=== PATIENT | male | born 1965 | race Caucasian/White ===

== ENCOUNTER 2022-01-11 10:49 | Emergency (ER) | payer OTHER, SELFPAY | END 2022-01-11 12:00 | disposition home or self-care (01) | LOC: CSHERS 10:49 | DX: J01.90 Acute sinusitis, unspecified (principal); Z87.891 Personal history of nicotine dependence | CPT/HCPCS: 99283 ==

== ENCOUNTER 2022-01-14 15:05 | Emergency (ER) | payer OTHER, SELFPAY ==
[2022-01-14] MEDS ORDERED: Metoclopramide HCl 10 MG/2 ML VIAL ONE (17:43)
[2022-01-14] MEDS ORDERED: Dexamethasone 10 MG/ML VIAL ONE (17:43)
[2022-01-14] MEDS ORDERED: diphenhydrAMINE 50 MG/ML VIAL ONE (17:44)
[2022-01-14] MEDS ORDERED: Ketorolac Tromethamine 30 MG/ML VIAL ONE (17:44)
== END 2022-01-14 19:36 | disposition home or self-care (01) ==
LOC: CSHERS 15:05
DX: J01.90 Acute sinusitis, unspecified (principal); I10 Essential (primary) hypertension; F17.210 Nicotine dependence, cigarettes, uncomplicated
CPT/HCPCS: 96361; 96374; 96375; J1100; J1200; J1885; J2765

== ENCOUNTER 2022-01-20 06:31 | Emergency (ER) | payer OTHER ==
[2022-01-20 07:31] LABS: #Basophils 0.1 10x3/uL (0.0-0.2); #Eosinphils 0.7 10x3/uL (0.0-0.5); #Monocytes 0.8 10x3/uL (0.0-1.1); #Neutrophils 9.2 10x3/uL (1.5-8.4); %Basophils 0.6 % (0.0-2.0); %Lymphocytes 9.4 % (18.0-47.0); %Monocytes 6.3 % (0.0-10.0); %Neutrophils 75.6 % (40.0-75.0); Hemoglobin 9.7 g/dL (13.5-17.5); Mean Corpuscular HGB CONC 32.4 g/dL (32.0-36.0); Mean Corpuscular Hemoglobin 25.3 pg (27.0-33.0); Mean Corpuscular Volume 77.9 fl (81.2-95.1); Mean Platelet Volume 9.1 fl (7.4-10.4); Platelet Count 534 10x3/uL (150-450); RBC Distribution Width 13.5 % (11.5-14.5); Red Blood Cell (RBC) Count 3.84 10x6/uL (4.32-5.72); White Blood Cell (WBC) Count 12.1 10x3/uL (3.5-10.5)
[2022-01-20] MEDS ORDERED: Albuterol Sulfate 2.5 mg/3 ml Neb ONE (07:35)
[2022-01-20 07:42] LABS: SARS-CoV-2 NAA Rapid Test Not Detected (NotDetected)
[2022-01-20 07:47] LABS: ALT (SGPT) 70 U/L (8-55); AST (SGOT) 27 U/L (5-34); Albumin 3.1 g/dL (3.5-5.0); Alkaline Phosphatase 126 U/L (40-110); Anion Gap 15 mmol/L (10-20); BUN (Urea Nitrogen) 13 mg/dL (8.4-25.7); Bilirubin, Total 0.4 mg/dL (0.2-1.2); Calc. Creatinine Clearance 0 mL/min (70-130); Carbon Dioxide 22 mmol/L (22-29); Chloride 103 mmol/L (98-107); Estimated GFR 77; Globulin 3.8 g/dL (2.4-3.5); Glucose 153 mg/dL (70-105); Lipase 15 U/L (8-78); Potassium 3.4 mmol/L (3.5-5.1); Protein, Total 6.9 g/dL (6.0-8.3); Sodium 137 mmol/L (136-145)
[2022-01-20] MEDS ORDERED: Azithromycin 500 MG VIAL ONE (10:11)
[2022-01-20] MEDS ORDERED: cefTRIAXone\\ROCEPHIN 2 GM VIAL ONE (10:11)
[2022-01-20] MEDS ORDERED: Hydrocortisone Sod Succ/PF 100 mg/2 ml Vial ONE (10:28)
[2022-01-20] MEDS ORDERED: Iopamidol 370 76% 100 ML VIAL ONE (16:15)
== END 2022-01-20 11:49 | disposition short-term general hospital (02) ==
LOC: CSHERS 06:31
DX: J18.9 Pneumonia, unspecified organism (principal); M31.30 Wegener's granulomatosis without renal involvement; Z20.822 Contact with and (suspected) exposure to COVID-19; Z87.891 Personal history of nicotine dependence
CPT/HCPCS: 71045; 71275; 80053; 83690; 83880; 84484; 85025; 85379; 94640; 94760; 96365; 96375; J0456; J0696; J1720; J7611; J7620; Q9967

== ENCOUNTER 2022-03-09 10:52 | Emergency (ER) | payer OTHER ==
[~2022-03-09 10:52] MED LIST: Iopamidol 300 61% 100 ML VIAL FS ONE
[2022-03-09 12:26] LABS: #Eosinphils 0.3 10x3/uL (0.0-0.5); #Monocytes 0.7 10x3/uL (0.0-1.1); #Neutrophils 14.4 10x3/uL (1.5-8.4); %Basophils 0.2 % (0.0-2.0); %Eosinophils 1.6 % (0.0-6.0); %Monocytes 4.3 % (0.0-10.0); %Neutrophils 85.9 % (40.0-75.0); Hemoglobin 8.8 g/dL (13.5-17.5); Mean Corpuscular HGB CONC 31.7 g/dL (32.0-36.0); Mean Corpuscular Hemoglobin 24.4 pg (27.0-33.0); Mean Platelet Volume 9.6 fl (7.4-10.4); Platelet Count 384 10x3/uL (150-450); RBC Distribution Width 16.7 % (11.5-14.5); Red Blood Cell (RBC) Count 3.61 10x6/uL (4.32-5.72); White Blood Cell (WBC) Count 16.8 10x3/uL (3.5-10.5)
[2022-03-09] MEDS ORDERED: Morphine 4 MG/ML VIAL ONE (12:32)
[2022-03-09] MEDS ORDERED: Ondansetron PF 4 MG/2 ML Vial ONE (12:32)
[2022-03-09 12:41] LABS: Bilirubin Neg (Negative); Blood, Urine 250 (Negative); Clarity Clear (Clear); Glucose, Urine (Dipstick) 50 mg/dL (Negative); Ketone, Urine Negative (Negative); Leukocyte 25 (Negative); Nitrite Negative (Negative); Protein, Urine (Dipstick) 500 mg/dl (Neg-Trace); Urobilinogen Normal mg/dL (Less than 2)
[2022-03-09 12:41] LABS: ALT (SGPT) 50 U/L (8-55); AST (SGOT) 27 U/L (5-34); Albumin 3.1 g/dL (3.5-5.0); Alkaline Phosphatase 72 U/L (40-110); Anion Gap 15 mmol/L (10-20); BUN (Urea Nitrogen) 22 mg/dL (8.4-25.7); Bilirubin, Total 0.2 mg/dL (0.2-1.2); Calc. Creatinine Clearance 0 mL/min (70-130); Calcium 8.7 mg/dL (7.8-10.44); Carbon Dioxide 26 mmol/L (22-29); Chloride 101 mmol/L (98-107); Estimated GFR 65; Globulin 2.9 g/dL (2.4-3.5); Glucose 186 mg/dL (70-105); Lipase 55 U/L (8-78); Sodium 139 mmol/L (136-145)
[2022-03-09 12:46] LABS: Bacteria/HPF None Seen HPF (None Seen); RBC/HPF 21-50 HPF (0-3); Squamous Epithelial 0-3 HPF (0-3); WBC/HPF 0-3 HPF (0-3)
[2022-03-09] MEDS ORDERED: Ketorolac Tromethamine 30 MG/ML VIAL ONE (13:33)
[2022-03-09] MEDS ORDERED: cefTRIAXone\\ROCEPHIN 2 GM VIAL ONE (14:18)
== END 2022-03-09 15:04 | disposition home or self-care (01) ==
LOC: CSHERS 10:52
DX: N30.01 Acute cystitis with hematuria (principal); Z87.891 Personal history of nicotine dependence; Z86.73 Personal history of transient ischemic attack (TIA), and cerebral infarction without residual deficits
CPT/HCPCS: 74177; 80053; 81003; 81015; 83690; 85025; 96374; 96375; J0696; J1885; J2270; J2405; Q9967

== ENCOUNTER 2022-03-16 21:41 | Inpatient (IN) | payer OTHER ==
[2022-03-16] MEDS ORDERED: Ondansetron PF 4 MG/2 ML Vial ONE (22:09)
[2022-03-16] MEDS ORDERED: Morphine 4 MG/ML VIAL ONE ×2 (22:09→23:19)
[2022-03-16 22:21] LABS: #Basophils 0.1 10x3/uL (0.0-0.2); #Eosinphils 0.4 10x3/uL (0.0-0.5); #Monocytes 0.8 10x3/uL (0.0-1.1); #Neutrophils 13.7 10x3/uL (1.5-8.4); %Basophils 0.5 % (0.0-2.0); %Eosinophils 2.1 % (0.0-6.0); %Lymphocytes 10.2 % (18.0-47.0); %Monocytes 4.8 % (0.0-10.0); %Neutrophils 77.8 % (40.0-75.0); Hemoglobin 10.1 g/dL (13.5-17.5); Mean Corpuscular HGB CONC 31.7 g/dL (32.0-36.0); Mean Corpuscular Hemoglobin 24.1 pg (27.0-33.0); Mean Corpuscular Volume 76.1 fl (81.2-95.1); Mean Platelet Volume 9.4 fl (7.4-10.4); Platelet Count 439 10x3/uL (150-450); RBC Distribution Width 17.2 % (11.5-14.5); Red Blood Cell (RBC) Count 4.19 10x6/uL (4.32-5.72); White Blood Cell (WBC) Count 17.5 10x3/uL (3.5-10.5)
[2022-03-16 22:30] LABS: ALT (SGPT) 71 U/L (8-55); AST (SGOT) 19 U/L (5-34); Albumin 3.5 g/dL (3.5-5.0); Alkaline Phosphatase 75 U/L (40-110); Anion Gap 19 mmol/L (10-20); BUN (Urea Nitrogen) 21 mg/dL (8.4-25.7); Bilirubin, Total 0.2 mg/dL (0.2-1.2); Calc. Creatinine Clearance 0 mL/min (70-130); Calcium 10.6 mg/dL (7.8-10.44); Carbon Dioxide 21 mmol/L (22-29); Chloride 100 mmol/L (98-107); Estimated GFR 51; Globulin 3.2 g/dL (2.4-3.5); Glucose 161 mg/dL (70-105); Potassium 3.8 mmol/L (3.5-5.1); Protein, Total 6.7 g/dL (6.0-8.3); Sodium 136 mmol/L (136-145)
[2022-03-16 23:33] LABS: Bilirubin Neg (Negative); Blood, Urine 250 (Negative); Clarity Clear (Clear); Glucose, Urine (Dipstick) 50 mg/dL (Negative); Ketone, Urine Negative (Negative); Leukocyte 25 (Negative); Nitrite Negative (Negative); Protein, Urine (Dipstick) 100 mg/dl (Neg-Trace); Specific Gravity, Urine 1.015 (1.005-1.030); Urobilinogen Normal mg/dL (Less than 2); pH, Urine 6.5 (5.0-9.0)
[2022-03-16 23:39] LABS: RBC/HPF 21-50 HPF (0-3)
[2022-03-16 23:40] LABS: Bacteria/HPF Rare-Few HPF (None Seen); Squamous Epithelial 0-3 HPF (0-3)
[2022-03-17] MEDS ORDERED: Piperacillin/Tazobactam 3.375 GM VIAL ONE ×3 (00:22→20:44)
[2022-03-17] MEDS ORDERED: HYDROmorphone 0.5 MG/0.5 ML SYRINGE ONE ×2 (00:38→00:39)
[2022-03-17] MEDS ORDERED: Ondansetron PF 4 MG/2 ML Vial IVP PRN (00:42)
[2022-03-17] MEDS ORDERED: Ondansetron ODT 4 MG TAB PO PRN (00:42)
[2022-03-17] MEDS ORDERED: Benzonatate 100 MG CAP PO PRN (00:44)
[2022-03-17] MEDS: Sodium Chloride 0.9% 1,000 ML IV SCH ×3 (01:45→23:38)
[2022-03-17] MEDS ORDERED: HYDROcodone/Acetaminophen 5/325 mg Tablet ONE ×3 (01:48→21:06)
[2022-03-17] MEDS: HYDROcodone/Acetaminophen 5/325 mg Tablet PO PRN ×3 (01:50→21:10)
[2022-03-17 01:57] LABS: SARS-CoV-2 NAA Rapid Test Not Detected (NotDetected)
[2022-03-17 02:34] VITALS: BMI 19.8
[2022-03-17] MEDS: Piperacillin/Tazobactam 3.375 GM in Sodium Chloride 0.9% 100 ML IVPB SCH ×3 (02:40→21:11)
[2022-03-17 03:10] LABS: #Basophils 0.1 10x3/uL (0.0-0.2); #Eosinphils 0.1 10x3/uL (0.0-0.5); #Monocytes 0.3 10x3/uL (0.0-1.1); #Neutrophils 9.2 10x3/uL (1.5-8.4); %Basophils 0.5 % (0.0-2.0); %Eosinophils 0.6 % (0.0-6.0); %Lymphocytes 8.8 % (18.0-47.0); %Monocytes 2.5 % (0.0-10.0); %Neutrophils 83.3 % (40.0-75.0); Hemoglobin 8.5 g/dL (13.5-17.5); Mean Corpuscular HGB CONC 32.1 g/dL (32.0-36.0); Mean Corpuscular Hemoglobin 24.2 pg (27.0-33.0); Mean Corpuscular Volume 75.5 fl (81.2-95.1); Mean Platelet Volume 9.1 fl (7.4-10.4); Platelet Count 352 10x3/uL (150-450); Red Blood Cell (RBC) Count 3.51 10x6/uL (4.32-5.72)
[2022-03-17 03:17] LABS: Lactic Acid 2.2 mmol/L (0.5-2.2)
[2022-03-17 04:08] LABS: ALT (SGPT) 56 U/L (8-55); AST (SGOT) 14 U/L (5-34); Alkaline Phosphatase 63 U/L (40-110); Anion Gap 17 mmol/L (10-20); BUN (Urea Nitrogen) 20 mg/dL (8.4-25.7); Bilirubin, Total 0.2 mg/dL (0.2-1.2); Calc. Creatinine Clearance 62 mL/min (70-130); Carbon Dioxide 22 mmol/L (22-29); Chloride 102 mmol/L (98-107); Estimated GFR 53; Globulin 2.6 g/dL (2.4-3.5); Glucose 161 mg/dL (70-105); Potassium 4.7 mmol/L (3.5-5.1); Protein, Total 5.6 g/dL (6.0-8.3); Sodium 136 mmol/L (136-145)
[2022-03-17] MEDS: Morphine 4 MG/ML VIAL SLOW IVP PRN ×2 (07:59→14:31)
[2022-03-17] MEDS ORDERED: Pregabalin 50 MG CAP ONE ×3 (08:11→22:27)
[2022-03-17] MEDS ORDERED: predniSONE 20 MG TAB ONE (08:12)
[2022-03-17] MEDS ORDERED: Morphine 4 MG/ML VIAL ONE ×3 (08:12→20:43)
[2022-03-17] MEDS ORDERED: Folic Acid 1 MG TAB ONE (08:13)
[2022-03-17] MEDS ORDERED: Apixaban 2.5 MG TAB ONE (08:16)
[2022-03-17] MEDS: DULoxetine 30 MG CAP PO SCH (08:22)
[2022-03-17] MEDS: Folic Acid 1 MG TAB PO SCH (08:22)
[2022-03-17] MEDS: Apixaban 2.5 MG TAB PO SCH ×2 (08:22→21:14)
[2022-03-17] MEDS: predniSONE 20 MG TAB PO SCH (08:22)
[2022-03-17] MEDS: Pregabalin 50 MG CAP PO SCH ×3 (08:22→22:29)
[2022-03-17] MEDS ORDERED: Iopamidol 370 76% 100 ML VIAL ONE (09:34)
[2022-03-17] MEDS ORDERED: Apixaban 5 MG TAB ONE ×2 (21:13→21:14)
[2022-03-18] MEDS ORDERED: Morphine 4 MG/ML VIAL ONE ×2 (01:18→09:16)
[2022-03-18] MEDS: Morphine 4 MG/ML VIAL SLOW IVP PRN ×4 (01:23→21:02)
[2022-03-18] MEDS ORDERED: HYDROcodone/Acetaminophen 5/325 mg Tablet ONE ×2 (02:12→10:43)
[2022-03-18] MEDS ORDERED: Piperacillin/Tazobactam 3.375 GM VIAL ONE (04:28)
[2022-03-18] MEDS: Piperacillin/Tazobactam 3.375 GM in Sodium Chloride 0.9% 100 ML IVPB SCH ×3 (04:32→21:02)
[2022-03-18] MEDS: HYDROcodone/Acetaminophen 5/325 mg Tablet PO PRN ×4 (04:47→22:34)
[2022-03-18] MEDS: Sodium Chloride 0.9% 1,000 ML IV SCH ×4 (05:51→18:41)
[2022-03-18] MEDS ORDERED: predniSONE 20 MG TAB ONE (08:10)
[2022-03-18] MEDS ORDERED: Apixaban 5 MG TAB ONE (08:10)
[2022-03-18] MEDS ORDERED: Folic Acid 1 MG TAB ONE (08:11)
[2022-03-18] MEDS ORDERED: Pregabalin 50 MG CAP ONE (08:35)
[2022-03-18] MEDS: Pregabalin 50 MG CAP PO SCH ×3 (08:52→21:00)
[2022-03-18] MEDS: Folic Acid 1 MG TAB PO SCH (08:53)
[2022-03-18] MEDS: Apixaban 2.5 MG TAB PO SCH ×2 (08:53→21:00)
[2022-03-18] MEDS: DULoxetine 30 MG CAP PO SCH (08:53)
[2022-03-18] MEDS: predniSONE 20 MG TAB PO SCH (08:53)
[2022-03-19] MEDS: Sodium Chloride 0.9% 1,000 ML IV SCH ×3 (00:18→11:39)
[2022-03-19] MEDS ORDERED: Sodium Chloride 0.9% 100 ML ONE (04:30)
[2022-03-19] MEDS: Piperacillin/Tazobactam 3.375 GM in Sodium Chloride 0.9% 100 ML IVPB SCH ×3 (04:36→21:37)
[2022-03-19] MEDS: HYDROcodone/Acetaminophen 5/325 mg Tablet PO PRN (04:39)
[2022-03-19 05:09] LABS: Anion Gap 11 mmol/L (10-20); BUN (Urea Nitrogen) 22 mg/dL (8.4-25.7); Calc. Creatinine Clearance 73 mL/min (70-130); Calcium 8.2 mg/dL (7.8-10.44); Carbon Dioxide 25 mmol/L (22-29); Chloride 109 mmol/L (98-107); Estimated GFR 65; Glucose 78 mg/dL (70-105); Potassium 3.9 mmol/L (3.5-5.1); Sodium 141 mmol/L (136-145)
[2022-03-19] MEDS: Pregabalin 50 MG CAP PO SCH ×3 (08:18→19:51)
[2022-03-19] MEDS: Apixaban 2.5 MG TAB PO SCH ×2 (08:18→19:52)
[2022-03-19] MEDS: DULoxetine 30 MG CAP PO SCH (08:18)
[2022-03-19] MEDS: predniSONE 20 MG TAB PO SCH (08:18)
[2022-03-19] MEDS: Folic Acid 1 MG TAB PO SCH (08:18)
[2022-03-19] MEDS: Morphine 4 MG/ML VIAL SLOW IVP PRN ×3 (08:34→19:49)
[2022-03-19] MEDS ORDERED: tiZANidine HCl 4 MG TAB PO SCH (10:00)
[2022-03-19] MEDS: HYDROcodone/Acetaminophen 10/325 mg Tablet PO PRN (17:54)
[2022-03-19] MEDS: tiZANidine HCl 4 MG TAB PO SCH (19:52)
[2022-03-20] MEDS: HYDROcodone/Acetaminophen 10/325 mg Tablet PO PRN ×4 (00:45→19:18)
[2022-03-20] MEDS: Piperacillin/Tazobactam 3.375 GM in Sodium Chloride 0.9% 100 ML IVPB SCH ×3 (05:55→20:42)
[2022-03-20] MEDS: Morphine 4 MG/ML VIAL SLOW IVP PRN ×4 (05:56→20:52)
[2022-03-20] MEDS: Sodium Chloride 0.9% 1,000 ML IV SCH (05:56)
[2022-03-20] MEDS: Pregabalin 50 MG CAP PO SCH ×3 (08:53→20:42)
[2022-03-20] MEDS: tiZANidine HCl 4 MG TAB PO SCH ×2 (08:53→20:43)
[2022-03-20] MEDS: Apixaban 2.5 MG TAB PO SCH ×2 (08:55→20:42)
[2022-03-20] MEDS: predniSONE 20 MG TAB PO SCH (08:56)
[2022-03-20] MEDS: Folic Acid 1 MG TAB PO SCH (08:56)
[2022-03-20] MEDS: DULoxetine 30 MG CAP PO SCH (08:56)
[2022-03-20 12:00] LABS: #Basophils 0.1 10x3/uL (0.0-0.2); #Eosinphils 0.4 10x3/uL (0.0-0.5); #Monocytes 0.9 10x3/uL (0.0-1.1); #Neutrophils 10.2 10x3/uL (1.5-8.4); %Basophils 0.4 % (0.0-2.0); %Eosinophils 3.1 % (0.0-6.0); %Lymphocytes 13.3 % (18.0-47.0); %Monocytes 6.1 % (0.0-10.0); %Neutrophils 72.8 % (40.0-75.0); Hemoglobin 8.2 g/dL (13.5-17.5); Mean Corpuscular HGB CONC 30.4 g/dL (32.0-36.0); Mean Corpuscular Volume 79.2 fl (81.2-95.1); Mean Platelet Volume 9.8 fl (7.4-10.4); Platelet Count 357 10x3/uL (150-450); RBC Distribution Width 17.2 % (11.5-14.5); Red Blood Cell (RBC) Count 3.41 10x6/uL (4.32-5.72)
[2022-03-20 12:13] LABS: ALT (SGPT) 29 U/L (8-55); AST (SGOT) 15 U/L (5-34); Albumin 2.9 g/dL (3.5-5.0); Alkaline Phosphatase 60 U/L (40-110); Anion Gap 12 mmol/L (10-20); BUN (Urea Nitrogen) 18 mg/dL (8.4-25.7); Bilirubin, Total 0.1 mg/dL (0.2-1.2); CRP (Inflammatory) 4.07 mg/dL (= or < 0.5); Calc. Creatinine Clearance 77 mL/min (70-130); Carbon Dioxide 25 mmol/L (22-29); Chloride 107 mmol/L (98-107); Estimated GFR 69; Globulin 2.1 g/dL (2.4-3.5); Glucose 112 mg/dL (70-105); Potassium 3.5 mmol/L (3.5-5.1); Sodium 140 mmol/L (136-145)
[2022-03-20] MEDS ORDERED: Amlodipine 5 MG TAB PO SCH ×2 (13:00→21:30)
[2022-03-20] MEDS ORDERED: methylPREDNISolone Sod Succ/PF 125 MG/2 ML VIAL IVP SCH (13:00)
[2022-03-20] MEDS: methylPREDNISolone Sod Succ 40 MG VIAL IVP SCH (17:18)
[2022-03-20 19:12] LABS: Bilirubin Neg (Negative); Blood, Urine 150 (Negative); Clarity Clear (Clear); Glucose, Urine (Dipstick) 250 mg/dL (Negative); Ketone, Urine Negative (Negative); Leukocyte Negative (Negative); Nitrite Negative (Negative); Protein, Urine (Dipstick) 100 mg/dl (Neg-Trace); Urobilinogen Normal mg/dL (Less than 2)
[2022-03-20 19:22] LABS: Squamous Epithelial 0-3 HPF (0-3); WBC/HPF 0-3 HPF (0-3)
[2022-03-20 19:23] LABS: Bacteria/HPF 1+ HPF (None Seen); Mucous/LPF 1+ LPF (<2+)
[2022-03-20] MEDS: Tamsulosin HCl 0.4 MG CAP PO SCH (20:43)
[2022-03-20] MEDS ORDERED: methylPREDNISolone Sod Succ 40 MG VIAL IVP SCH (21:00)
[2022-03-20] MEDS ORDERED: Nitroglycerin 2% Ointment 1 INCH/1 GM Packet TOP SCH (21:30)
[2022-03-21] MEDS: methylPREDNISolone Sod Succ 40 MG VIAL IVP SCH ×4 (00:48→21:26)
[2022-03-21] MEDS: HYDROcodone/Acetaminophen 10/325 mg Tablet PO PRN ×3 (00:49→21:26)
[2022-03-21] MEDS: Sodium Chloride 0.9% 1,000 ML IV SCH ×2 (00:49→23:26)
[2022-03-21] MEDS: Morphine 4 MG/ML VIAL SLOW IVP PRN ×3 (03:22→15:00)
[2022-03-21] MEDS: Piperacillin/Tazobactam 3.375 GM in Sodium Chloride 0.9% 100 ML IVPB SCH ×3 (05:35→21:35)
[2022-03-21] MEDS ORDERED: Lisinopril 5 MG TAB PO SCH (08:00)
[2022-03-21] MEDS: tiZANidine HCl 4 MG TAB PO SCH ×2 (08:34→21:25)
[2022-03-21] MEDS: Apixaban 2.5 MG TAB PO SCH ×2 (08:34→21:26)
[2022-03-21] MEDS: DULoxetine 30 MG CAP PO SCH (08:34)
[2022-03-21] MEDS: Folic Acid 1 MG TAB PO SCH (08:34)
[2022-03-21] MEDS: Amlodipine 10 MG TAB PO SCH (08:34)
[2022-03-21] MEDS: Pregabalin 50 MG CAP PO SCH ×3 (08:34→23:25)
[2022-03-21] MEDS: Lisinopril 20 MG TAB PO SCH ×2 (08:44→21:26)
[2022-03-21] MEDS ORDERED: Amlodipine 5 MG TAB PO SCH (09:00)
[2022-03-21 11:46] LABS: Chlam.trachomatis by PCR,Urine Not Detected (NotDetected)
[2022-03-21] MEDS: Tamsulosin HCl 0.4 MG CAP PO SCH (21:26)
[2022-03-22] MEDS: Morphine 4 MG/ML VIAL SLOW IVP PRN ×3 (01:08→19:22)
[2022-03-22] MEDS: HYDROcodone/Acetaminophen 10/325 mg Tablet PO PRN ×3 (06:09→21:23)
[2022-03-22] MEDS: Piperacillin/Tazobactam 3.375 GM in Sodium Chloride 0.9% 100 ML IVPB SCH ×3 (06:11→21:21)
[2022-03-22] MEDS: DULoxetine 30 MG CAP PO SCH (08:25)
[2022-03-22] MEDS: Folic Acid 1 MG TAB PO SCH (08:25)
[2022-03-22] MEDS: Apixaban 2.5 MG TAB PO SCH ×2 (08:25→21:21)
[2022-03-22] MEDS: Lisinopril 20 MG TAB PO SCH ×2 (08:25→21:22)
[2022-03-22] MEDS: Pregabalin 50 MG CAP PO SCH ×3 (08:25→21:22)
[2022-03-22] MEDS: Amlodipine 10 MG TAB PO SCH (08:26)
[2022-03-22] MEDS: methylPREDNISolone Sod Succ 40 MG VIAL IVP SCH ×2 (08:26→21:21)
[2022-03-22] MEDS: tiZANidine HCl 4 MG TAB PO SCH ×2 (08:26→21:23)
[2022-03-22] MEDS ORDERED: Lisinopril 5 MG TAB PO SCH (09:00)
[2022-03-22] MEDS: Tamsulosin HCl 0.4 MG CAP PO SCH (21:22)
[2022-03-23] MEDS: HYDROcodone/Acetaminophen 10/325 mg Tablet PO PRN ×4 (01:11→19:52)
[2022-03-23 04:58] LABS: Anion Gap 12 mmol/L (10-20); BUN (Urea Nitrogen) 25 mg/dL (8.4-25.7); Calc. Creatinine Clearance 74 mL/min (70-130); Calcium 8.3 mg/dL (7.8-10.44); Carbon Dioxide 25 mmol/L (22-29); Chloride 105 mmol/L (98-107); Estimated GFR 65; Glucose 196 mg/dL (70-105); Sodium 138 mmol/L (136-145)
[2022-03-23 05:07] LABS: #Basophils 0.1 10x3/uL (0.0-0.2); #Monocytes 0.6 10x3/uL (0.0-1.1); #Neutrophils 13.6 10x3/uL (1.5-8.4); %Basophils 0.4 % (0.0-2.0); %Monocytes 3.6 % (0.0-10.0); %Neutrophils 82.5 % (40.0-75.0); Hemoglobin 8.3 g/dL (13.5-17.5); Mean Corpuscular HGB CONC 30.5 g/dL (32.0-36.0); Mean Corpuscular Volume 78.6 fl (81.2-95.1); Mean Platelet Volume 10.2 fl (7.4-10.4); Platelet Count 401 10x3/uL (150-450); RBC Distribution Width 17.7 % (11.5-14.5); Red Blood Cell (RBC) Count 3.46 10x6/uL (4.32-5.72); White Blood Cell (WBC) Count 16.4 10x3/uL (3.5-10.5)
[2022-03-23] MEDS: Piperacillin/Tazobactam 3.375 GM in Sodium Chloride 0.9% 100 ML IVPB SCH ×3 (06:34→20:53)
[2022-03-23] MEDS: Amlodipine 10 MG TAB PO SCH (08:41)
[2022-03-23] MEDS: DULoxetine 30 MG CAP PO SCH (08:41)
[2022-03-23] MEDS: tiZANidine HCl 4 MG TAB PO SCH ×2 (08:41→20:56)
[2022-03-23] MEDS: Apixaban 2.5 MG TAB PO SCH ×2 (08:41→20:57)
[2022-03-23] MEDS: Pregabalin 50 MG CAP PO SCH ×3 (08:42→20:56)
[2022-03-23] MEDS: Lisinopril 20 MG TAB PO SCH ×2 (08:42→20:57)
[2022-03-23] MEDS: methylPREDNISolone Sod Succ 40 MG VIAL IVP SCH ×2 (08:42→20:55)
[2022-03-23] MEDS: Folic Acid 1 MG TAB PO SCH (08:42)
[2022-03-23] MEDS: Morphine 4 MG/ML VIAL SLOW IVP PRN ×2 (08:43→16:53)
[2022-03-23] MEDS: Tamsulosin HCl 0.4 MG CAP PO SCH (20:56)
[2022-03-24] MEDS: HYDROcodone/Acetaminophen 10/325 mg Tablet PO PRN ×3 (03:30→12:46)
[2022-03-24] MEDS: Piperacillin/Tazobactam 3.375 GM in Sodium Chloride 0.9% 100 ML IVPB SCH ×2 (05:00→12:04)
[2022-03-24 08:11] VITALS: BP 122/83; TEMP 98.3
[2022-03-24] MEDS: methylPREDNISolone Sod Succ 40 MG VIAL IVP SCH (08:40)
[2022-03-24] MEDS: DULoxetine 30 MG CAP PO SCH (08:40)
[2022-03-24] MEDS: Pregabalin 50 MG CAP PO SCH (08:40)
[2022-03-24] MEDS: Lisinopril 20 MG TAB PO SCH (08:41)
[2022-03-24] MEDS: Folic Acid 1 MG TAB PO SCH (08:41)
[2022-03-24] MEDS: Amlodipine 10 MG TAB PO SCH (08:41)
[2022-03-24] MEDS: tiZANidine HCl 4 MG TAB PO SCH (08:41)
[2022-03-24] MEDS: Apixaban 2.5 MG TAB PO SCH (08:41)
== END 2022-03-24 13:37 | disposition home or self-care (01) | DRG 543 ==
LOC: CSHERS 21:41 → CSHERHOLD 03-17 02:27 → UNDOADMOB 03-17 02:27 → CSHERHOLD 03-17 02:28 → UNDOADMOB 03-18 09:09 → CSHERHOLD 03-18 09:09 → CSHTELE 03-18 12:34 → OBSVTOIN 03-19 10:11
PROVIDERS: ADMIT Emergency Medicine; ATTEND Internal Medicine
DX: M31.30 Wegener's granulomatosis without renal involvement (principal); N17.9 Acute kidney failure, unspecified; I16.0 Hypertensive urgency; N45.3 Epididymo-orchitis; F17.210 Nicotine dependence, cigarettes, uncomplicated; E83.52 Hypercalcemia; N18.2 Chronic kidney disease, stage 2 (mild); I12.9 Hypertensive chronic kidney disease with stage 1 through stage 4 chronic kidney disease, or unspecified chronic kidney disease; Z20.822 Contact with and (suspected) exposure to COVID-19; E88.09 Other disorders of plasma-protein metabolism, not elsewhere classified; K57.90 Diverticulosis of intestine, part unspecified, without perforation or abscess without bleeding; K80.20 Calculus of gallbladder without cholecystitis without obstruction; Z86.718 Personal history of other venous thrombosis and embolism; Z79.01 Long term (current) use of anticoagulants; Z79.899 Other long term (current) drug therapy; Z82.49 Family history of ischemic heart disease and other diseases of the circulatory system; Z79.51 Long term (current) use of inhaled steroids; Z98.890 Other specified postprocedural states
CPT/HCPCS: 36415; 74174; 74176; 76870; 80048; 80053; 81001; 81003; 81015; 83605; 85025; 85652; 86140; 87040; 87086; 87491; 87591; 93976; 96365; 96375; 96376; G0378; J1170; J2270; J2405; J2543; J2920; J2930; J3490; J7050; J7512; Q9967; U0002

== ENCOUNTER 2022-05-13 08:11 | Inpatient (IN) | payer OTHER ==
[2022-05-13 09:01] LABS: #Eosinphils 0.2 10x3/uL (0.0-0.5); #Monocytes 0.5 10x3/uL (0.0-1.1); #Neutrophils 4.9 10x3/uL (1.5-8.4); %Basophils 0.5 % (0.0-2.0); %Eosinophils 1.8 % (0.0-6.0); %Lymphocytes 29.1 % (18.0-47.0); %Monocytes 5.8 % (0.0-10.0); %Neutrophils 60.3 % (40.0-75.0); Hemoglobin 8.9 g/dL (13.5-17.5); Mean Corpuscular HGB CONC 30.8 g/dL (32.0-36.0); Mean Corpuscular Hemoglobin 24.1 pg (27.0-33.0); Mean Corpuscular Volume 78.1 fl (81.2-95.1); Mean Platelet Volume 9.3 fl (7.4-10.4); Platelet Count 354 10x3/uL (150-450); RBC Distribution Width 19.1 % (11.5-14.5); White Blood Cell (WBC) Count 8.1 10x3/uL (3.5-10.5)
[2022-05-13] MEDS ORDERED: Iopamidol 300 61% 100 ML VIAL FS ONE (09:07)
[2022-05-13] MEDS ORDERED: Morphine 4 MG/ML VIAL ONE (09:28)
[2022-05-13] MEDS ORDERED: Ondansetron PF 4 MG/2 ML Vial ONE (09:28)
[2022-05-13 09:29] LABS: Bilirubin Neg (Negative); Blood, Urine 150 (Negative); Clarity Clear (Clear); Glucose, Urine (Dipstick) 100 mg/dL (Negative); Ketone, Urine Negative (Negative); Leukocyte Negative (Negative); Nitrite Negative (Negative); Protein, Urine (Dipstick) 100 mg/dl (Neg-Trace); Urobilinogen Normal mg/dL (Less than 2)
[2022-05-13 09:31] LABS: Acetaminophen Less than 10.0 mcg/mL (10.0-30.0); Alcohol Less than 10 mg/dL (Less than 10); CK (CPK) 24 U/L (30-200); Magnesium 1.7 mg/dL (1.6-2.6); Salicylate Less than 8.0 mg/dL (15.0-30.0)
[2022-05-13 09:32] LABS: ALT (SGPT) 24 U/L (8-55); AST (SGOT) 11 U/L (5-34); Albumin 3.3 g/dL (3.5-5.0); Alkaline Phosphatase 57 U/L (40-110); Anion Gap 14 mmol/L (10-20); BUN (Urea Nitrogen) 14 mg/dL (8.4-25.7); Bilirubin, Total 0.2 mg/dL (0.2-1.2); Calc. Creatinine Clearance 0 mL/min (70-130); Calcium 8.2 mg/dL (7.8-10.44); Carbon Dioxide 22 mmol/L (22-29); Chloride 107 mmol/L (98-107); Estimated GFR 69; Globulin 2.1 g/dL (2.4-3.5); Glucose 90 mg/dL (70-105); Lipase 272 U/L (8-78); Potassium 4.5 mmol/L (3.5-5.1); Protein, Total 5.4 g/dL (6.0-8.3); Sodium 138 mmol/L (136-145)
[2022-05-13 09:40] LABS: Amphetamine Detected (NotDetected); Barbiturates Screen Not Detected (NotDetected); Benzodiazepine Screen Not Detected (NotDetected); Cocaine Metabolite Screen Not Detected (NotDetected); Methadone Not Detected (NotDetected); Methamphetamine Detected (NotDetected); Opiate Screen Not Detected (NotDetected); Oxycodone Screen Not Detected (NotDetected); Phencyclidine (PCP) Not Detected (NotDetected); THC/Cannabinoid Screen Not Detected (NotDetected); Tricyclic Screen Not Detected (NotDetected)
[2022-05-13 10:05] LABS: Squamous Epithelial 0-3 HPF (0-3); WBC/HPF 0-3 HPF (0-3)
[2022-05-13 10:06] LABS: Bacteria/HPF Rare-Few HPF (None Seen)
[2022-05-13] MEDS ORDERED: Aspirin Chewable 81 MG TAB ONE (10:45)
[2022-05-13] MEDS ORDERED: Senokot S 8.6-50 MG TAB PO PRN (12:41)
[2022-05-13] MEDS ORDERED: Nicotine 14 MG PATCH TD PRN (12:41)
[2022-05-13] MEDS ORDERED: Acetaminophen 325 MG TAB PO PRN (12:41)
[2022-05-13] MEDS ORDERED: Ondansetron PF 4 MG/2 ML Vial IVP PRN (12:41)
[2022-05-13] MEDS ORDERED: Ondansetron ODT 4 MG TAB PO PRN (12:41)
[2022-05-13] MEDS ORDERED: predniSONE 20 MG TAB PO SCH (13:00)
[2022-05-13 13:18] LABS: Iron 13 ug/dL (65-175); Iron Binding Capacity, Total 285 mcg/dL (261-462); Transferrin, Serum 228 mg/dL (174-364)
[2022-05-13 14:20] VITALS: BMI 23.6
[2022-05-13] MEDS: Lactated Ringer's 1,000 ML IV SCH (14:52)
[2022-05-13] MEDS ORDERED: Ipratropium/Albuterol 3 ML NEB NEB PRN (15:12)
[2022-05-13] MEDS: Pregabalin 50 MG CAP PO SCH ×2 (15:35→20:49)
[2022-05-13] MEDS ORDERED: Iron Sucrose Complex 200 MG in Sodium Chloride 0.9% 100 ML IVPB SCH (16:00)
[2022-05-13] MEDS: Atorvastatin Calcium 40 MG TAB PO SCH (20:49)
[2022-05-13] MEDS: Apixaban 2.5 MG TAB PO SCH (20:50)
[2022-05-14] MEDS: Lactated Ringer's 1,000 ML IV SCH (01:12)
[2022-05-14] MEDS ORDERED: HYDROcodone/Acetaminophen 5/325 mg Tablet PO SCH (01:15)
[2022-05-14 05:14] LABS: #Eosinphils 0.4 10x3/uL (0.0-0.5); #Monocytes 0.3 10x3/uL (0.0-1.1); #Neutrophils 4.8 10x3/uL (1.5-8.4); %Basophils 0.5 % (0.0-2.0); %Eosinophils 5.6 % (0.0-6.0); %Lymphocytes 12.5 % (18.0-47.0); %Monocytes 4.4 % (0.0-10.0); %Neutrophils 74.8 % (40.0-75.0); Hemoglobin 8.1 g/dL (13.5-17.5); Mean Corpuscular HGB CONC 31.2 g/dL (32.0-36.0); Mean Corpuscular Hemoglobin 24.4 pg (27.0-33.0); Mean Corpuscular Volume 78.3 fl (81.2-95.1); Mean Platelet Volume 9.4 fl (7.4-10.4); Platelet Count 262 10x3/uL (150-450); RBC Distribution Width 18.7 % (11.5-14.5); Red Blood Cell (RBC) Count 3.32 10x6/uL (4.32-5.72); White Blood Cell (WBC) Count 6.4 10x3/uL (3.5-10.5)
[2022-05-14 05:17] LABS: Anion Gap 14 mmol/L (10-20); BUN (Urea Nitrogen) 13 mg/dL (8.4-25.7); Calc. Creatinine Clearance 80 mL/min (70-130); Calcium 8.2 mg/dL (7.8-10.44); Carbon Dioxide 22 mmol/L (22-29); Cardiac Risk 2.8 (Less than 4.5); Chloride 106 mmol/L (98-107); Cholesterol 149 mg/dl (< 200 Desired); Estimated GFR 75; Glucose 79 mg/dL (70-105); HDL Cholesterol 53 mg/dL (>60 Neg Risk); LDL Cholesterol, Calculated 67 mg/dL; Lipase 191 U/L (8-78); Potassium 4.4 mmol/L (3.5-5.1); Sodium 138 mmol/L (136-145); Triglycerides 146 mg/dL (Less than 150)
[2022-05-14] MEDS: Pregabalin 50 MG CAP PO SCH ×3 (08:54→21:27)
[2022-05-14] MEDS: Apixaban 2.5 MG TAB PO SCH ×2 (08:56→21:27)
[2022-05-14] MEDS: Folic Acid 1 MG TAB PO SCH (08:56)
[2022-05-14] MEDS: DULoxetine 30 MG CAP PO SCH (08:56)
[2022-05-14] MEDS: Aspirin 81 mg Enteric Coated Tablet PO SCH (08:56)
[2022-05-14] MEDS: Ferrous Sulfate 325 MG TAB PO SCH (08:57)
[2022-05-14] MEDS: Tamsulosin HCl 0.4 MG CAP PO SCH (08:57)
[2022-05-14] MEDS ORDERED: FLU VACC QS2022-23(6MOS UP)/PF 60 MCG/0.5 ML SYRINGE IM ONE (09:00)
[2022-05-14] MEDS ORDERED: Iron, Sodium Ferric Gluconate 125 MG in Sodium Chloride 0.9% 100 ML IVPB SCH (14:15)
[2022-05-14] MEDS: Iron, Sodium Ferric Gluconate 125 MG in Sodium Chloride 0.9% 100 ML IVPB SCH (15:08)
[2022-05-14] MEDS: Atorvastatin Calcium 40 MG TAB PO SCH (21:26)
[2022-05-15 04:53] LABS: #Eosinphils 0.2 10x3/uL (0.0-0.5); #Monocytes 0.4 10x3/uL (0.0-1.1); #Neutrophils 4.7 10x3/uL (1.5-8.4); %Basophils 0.1 % (0.0-2.0); %Eosinophils 3.1 % (0.0-6.0); %Lymphocytes 19.8 % (18.0-47.0); %Monocytes 6.2 % (0.0-10.0); %Neutrophils 68.7 % (40.0-75.0); Mean Corpuscular HGB CONC 31.3 g/dL (32.0-36.0); Mean Corpuscular Hemoglobin 24.3 pg (27.0-33.0); Mean Corpuscular Volume 77.8 fl (81.2-95.1); Mean Platelet Volume 9.5 fl (7.4-10.4); Platelet Count 279 10x3/uL (150-450); RBC Distribution Width 18.6 % (11.5-14.5); Red Blood Cell (RBC) Count 3.29 10x6/uL (4.32-5.72); White Blood Cell (WBC) Count 6.8 10x3/uL (3.5-10.5)
[2022-05-15 05:01] LABS: Anion Gap 12 mmol/L (10-20); BUN (Urea Nitrogen) 19 mg/dL (8.4-25.7); Calc. Creatinine Clearance 69 mL/min (70-130); Calcium 8.3 mg/dL (7.8-10.44); Carbon Dioxide 24 mmol/L (22-29); Chloride 105 mmol/L (98-107); Estimated GFR 64; Glucose 160 mg/dL (70-105); Magnesium 1.8 mg/dL (1.6-2.6); Sodium 137 mmol/L (136-145)
[2022-05-15] MEDS: Pregabalin 50 MG CAP PO SCH ×3 (09:11→20:19)
[2022-05-15] MEDS: Apixaban 2.5 MG TAB PO SCH ×2 (09:13→20:19)
[2022-05-15] MEDS: Tamsulosin HCl 0.4 MG CAP PO SCH (09:13)
[2022-05-15] MEDS: Folic Acid 1 MG TAB PO SCH (09:13)
[2022-05-15] MEDS: Ferrous Sulfate 325 MG TAB PO SCH (09:13)
[2022-05-15] MEDS: predniSONE 10 MG TAB PO SCH (09:14)
[2022-05-15] MEDS: DULoxetine 30 MG CAP PO SCH (09:18)
[2022-05-15] MEDS: Aspirin 81 mg Enteric Coated Tablet PO SCH (09:18)
[2022-05-15] MEDS: Iron, Sodium Ferric Gluconate 125 MG in Sodium Chloride 0.9% 100 ML IVPB SCH (15:28)
[2022-05-15] MEDS: Atorvastatin Calcium 40 MG TAB PO SCH (20:19)
[2022-05-16] MEDS: Pregabalin 50 MG CAP PO SCH (10:14)
[2022-05-16] MEDS: DULoxetine 30 MG CAP PO SCH (10:14)
[2022-05-16] MEDS: Apixaban 2.5 MG TAB PO SCH (10:16)
[2022-05-16] MEDS: Folic Acid 1 MG TAB PO SCH (10:16)
[2022-05-16] MEDS: Aspirin 81 mg Enteric Coated Tablet PO SCH (10:16)
[2022-05-16] MEDS: predniSONE 10 MG TAB PO SCH (10:16)
[2022-05-16] MEDS: Tamsulosin HCl 0.4 MG CAP PO SCH (10:16)
[2022-05-16] MEDS: Ferrous Sulfate 325 MG TAB PO SCH (10:16)
[2022-05-16 10:57] VITALS: BP 120/74; TEMP 97.9
== END 2022-05-16 11:30 | disposition home or self-care (01) | DRG 65 ==
LOC: CSHERS 08:11 → CSHTELE 13:51 → OBSVTOIN 05-14 15:55
PROVIDERS: ADMIT Hospitalist; ATTEND Internal Medicine
DX: I63.9 Cerebral infarction, unspecified (principal); G81.94 Hemiplegia, unspecified affecting left nondominant side; M31.31 Wegener's granulomatosis with renal involvement; I10 Essential (primary) hypertension; G62.9 Polyneuropathy, unspecified; R13.10 Dysphagia, unspecified; D50.0 Iron deficiency anemia secondary to blood loss (chronic); K21.9 Gastro-esophageal reflux disease without esophagitis; F32.A Depression, unspecified; F17.210 Nicotine dependence, cigarettes, uncomplicated; N40.0 Benign prostatic hyperplasia without lower urinary tract symptoms; Z98.1 Arthrodesis status; Z86.73 Personal history of transient ischemic attack (TIA), and cerebral infarction without residual deficits; Z98.890 Other specified postprocedural states; Z79.899 Other long term (current) drug therapy; Z79.51 Long term (current) use of inhaled steroids; Z71.6 Tobacco abuse counseling; Z86.711 Personal history of pulmonary embolism; Z86.718 Personal history of other venous thrombosis and embolism; Z71.51 Drug abuse counseling and surveillance of drug abuser; G89.4 Chronic pain syndrome
CPT/HCPCS: 36415; 36416; 70450; 70551; 71260; 72125; 74177; 74220; 80048; 80053; 80061; 80306; 80307; 81003; 81015; 82550; 82728; 83540; 83550; 83605; 83690; 83735; 84443; 84466; 84484; 85025; 93005; 93306; 93880; 94760; 95816; 95819; 95957; 96361; 96374; 96375; G0378; J1756; J2270; J2405; J2916; J3490; J7120; J7512; Q9967

== ENCOUNTER 2022-06-07 08:45 | Outpatient (CLI) | payer OTHER | END 2022-06-07 08:46 | disposition home or self-care (01) | LOC: CSHCT 08:45 | PROVIDERS: ATTEND General Practice | DX: Z12.2 Encounter for screening for malignant neoplasm of respiratory organs (principal); F17.210 Nicotine dependence, cigarettes, uncomplicated | CPT/HCPCS: 71271 ==

== ENCOUNTER 2022-07-16 08:13 | Outpatient (CLI) | payer OTHER | END 2022-07-16 08:14 | disposition home or self-care (01) | LOC: CSHULT 08:13 | PROVIDERS: ATTEND General Practice | DX: Z13.6 Encounter for screening for cardiovascular disorders (principal); F17.200 Nicotine dependence, unspecified, uncomplicated | CPT/HCPCS: 76775 ==

== ENCOUNTER 2022-09-15 18:14 | Emergency (ER) | payer OTHER ==
[2022-09-15 19:14] LABS: #Basophils 0.1 10x3/uL (0.0-0.2); #Eosinphils 0.1 10x3/uL (0.0-0.5); #Monocytes 0.7 10x3/uL (0.0-1.1); #Neutrophils 6.9 10x3/uL (1.5-8.4); %Basophils 0.8 % (0.0-2.0); %Eosinophils 1.1 % (0.0-6.0); %Lymphocytes 20.9 % (18.0-47.0); %Monocytes 6.6 % (0.0-10.0); %Neutrophils 69.4 % (40.0-75.0); Hemoglobin 12.2 g/dL (13.5-17.5); Mean Corpuscular HGB CONC 32.4 g/dL (32.0-36.0); Mean Corpuscular Hemoglobin 27.4 pg (27.0-33.0); Mean Corpuscular Volume 84.5 fl (81.2-95.1); Mean Platelet Volume 10.1 fl (7.4-10.4); Platelet Count 357 10x3/uL (150-450); RBC Distribution Width 15.9 % (11.5-14.5); Red Blood Cell (RBC) Count 4.45 10x6/uL (4.32-5.72); White Blood Cell (WBC) Count 9.9 10x3/uL (3.5-10.5)
[2022-09-15 19:31] LABS: ALT (SGPT) 22 U/L (8-55); AST (SGOT) 16 U/L (5-34); Albumin 3.8 g/dL (3.5-5.0); Alkaline Phosphatase 57 U/L (40-110); Anion Gap 13 mmol/L (10-20); BUN (Urea Nitrogen) 25 mg/dL (8.4-25.7); Bilirubin, Total 0.3 mg/dL (0.2-1.2); Calc. Creatinine Clearance 0 mL/min (70-130); Calcium 9.2 mg/dL (7.8-10.44); Carbon Dioxide 22 mmol/L (22-29); Chloride 109 mmol/L (98-107); Estimated GFR 42; Globulin 2.5 g/dL (2.4-3.5); Glucose 138 mg/dL (70-105); Potassium 4.2 mmol/L (3.5-5.1); Protein, Total 6.3 g/dL (6.0-8.3); Sodium 140 mmol/L (136-145)
[2022-09-15] MEDS ORDERED: Acetaminophen 500 MG TAB ONE ×2 (19:44→20:54)
[2022-09-15] MEDS ORDERED: Ketorolac Tromethamine 30 MG/ML VIAL ONE (20:53)
[2022-09-15] MEDS ORDERED: Metoclopramide HCl 10 MG/2 ML VIAL ONE (20:53)
== END 2022-09-16 00:29 | disposition short-term general hospital (02) ==
LOC: CSHERS 18:14
DX: I95.9 Hypotension, unspecified (principal); R00.1 Bradycardia, unspecified
CPT/HCPCS: 70450; 71045; 80053; 84484; 85025; 93005; J1885; J2765

== ENCOUNTER 2022-10-14 08:47 | Inpatient (IN) | payer OTHER ==
[2022-10-14 09:22] LABS: #Basophils 0.1 10x3/uL (0.0-0.2); #Eosinphils 0.2 10x3/uL (0.0-0.5); #Monocytes 0.8 10x3/uL (0.0-1.1); #Neutrophils 7.1 10x3/uL (1.5-8.4); %Basophils 0.5 % (0.0-2.0); %Lymphocytes 26.5 % (18.0-47.0); %Monocytes 7.2 % (0.0-10.0); %Neutrophils 63.1 % (40.0-75.0); Hemoglobin 12.1 g/dL (13.5-17.5); Mean Corpuscular HGB CONC 32.7 g/dL (32.0-36.0); Mean Corpuscular Hemoglobin 27.8 pg (27.0-33.0); Mean Corpuscular Volume 84.9 fl (81.2-95.1); Platelet Count 267 10x3/uL (150-450); RBC Distribution Width 16.4 % (11.5-14.5); Red Blood Cell (RBC) Count 4.36 10x6/uL (4.32-5.72); White Blood Cell (WBC) Count 11.3 10x3/uL (3.5-10.5)
[2022-10-14 09:38] LABS: ALT (SGPT) 28 U/L (8-55); AST (SGOT) 18 U/L (5-34); Alkaline Phosphatase 70 U/L (40-110); Anion Gap 19 mmol/L (10-20); BUN (Urea Nitrogen) 20 mg/dL (8.4-25.7); Bilirubin, Total 0.2 mg/dL (0.2-1.2); Calc. Creatinine Clearance 0 mL/min (70-130); Calcium 9.1 mg/dL (7.8-10.44); Carbon Dioxide 21 mmol/L (22-29); Chloride 107 mmol/L (98-107); Estimated GFR 52; Globulin 2.7 g/dL (2.4-3.5); Glucose 129 mg/dL (70-105); Lipase 69 U/L (8-78); Potassium 4.5 mmol/L (3.5-5.1); Protein, Total 6.7 g/dL (6.0-8.3); Sodium 142 mmol/L (136-145)
[2022-10-14] MEDS ORDERED: Ondansetron PF 4 MG/2 ML Vial ONE (09:45)
[2022-10-14] MEDS ORDERED: Morphine 4 MG/ML VIAL ONE (09:45)
[2022-10-14 10:22] LABS: Bilirubin Neg (Negative); Blood, Urine Negative (Negative); Clarity Clear (Clear); Glucose, Urine (Dipstick) Normal (Negative); Ketone, Urine Negative (Negative); Leukocyte Negative (Negative); Nitrite Negative (Negative); Protein, Urine (Dipstick) 100 mg/dl (Neg-Trace); Specific Gravity, Urine 1.025 (1.005-1.030); Urobilinogen Normal mg/dL (Less than 2)
[2022-10-14] MEDS ORDERED: Iopamidol 370 76% 100 ML VIAL ONE (10:23)
[2022-10-14 10:39] LABS: Bacteria/HPF None Seen HPF (None Seen); CAUTI Indications for Culture Pelvic or flank pain; RBC/HPF 0-3 HPF (0-3); Squamous Epithelial None Seen HPF (0-3); WBC/HPF 0-3 HPF (0-3)
[2022-10-14 10:40] LABS: Urine Culture Reflex No No
[2022-10-14 12:49] LABS: Troponin I 0.059 ng/mL (< 0.028)
[2022-10-14] MEDS ORDERED: Aspirin Chewable 81 MG TAB ONE (13:50)
[2022-10-14] MEDS ORDERED: Nitroglycerin 0.4 MG TAB 1 EACH ONE (13:50)
[2022-10-14 16:21] LABS: Troponin I 0.056 ng/mL (< 0.028)
[2022-10-14] MEDS ORDERED: Carvedilol 3.125 MG TAB PO SCH (17:00)
[2022-10-14] MEDS ORDERED: HYDROcodone/Acetaminophen 5/325 mg Tablet PO PRN (17:17)
[2022-10-14 18:05] VITALS: BMI 24.4
[2022-10-14] MEDS: HYDROcodone/Acetaminophen 10/325 mg Tablet PO PRN ×2 (19:05→23:14)
[2022-10-14] MEDS: Carvedilol 3.125 MG TAB PO SCH (19:06)
[2022-10-14 19:32] LABS: Troponin I 0.047 ng/mL (< 0.028)
[2022-10-14 19:58] LABS: Amphetamine Not Detected (NotDetected); Barbiturates Screen Not Detected (NotDetected); Benzodiazepine Screen Not Detected (NotDetected); Cocaine Metabolite Screen Not Detected (NotDetected); Methadone Not Detected (NotDetected); Methamphetamine Not Detected (NotDetected); Opiate Screen Detected (NotDetected); Oxycodone Screen Not Detected (NotDetected); Phencyclidine (PCP) Not Detected (NotDetected); THC/Cannabinoid Screen Not Detected (NotDetected); Tricyclic Screen Not Detected (NotDetected)
[2022-10-15] MEDS ORDERED: Lactated Ringer's 500 ML IV SCH ×2 (01:30→16:30)
[2022-10-15] MEDS ORDERED: Ketorolac Tromethamine 30 MG/ML VIAL IVP SCH (02:30)
[2022-10-15 02:43] LABS: SARS-CoV-2 NAA Rapid Test Not Detected (NotDetected)
[2022-10-15] MEDS: HYDROcodone/Acetaminophen 10/325 mg Tablet PO PRN ×2 (05:22→11:54)
[2022-10-15 05:55] LABS: Anion Gap 18 mmol/L (10-20); BUN (Urea Nitrogen) 18 mg/dL (8.4-25.7); Calc. Creatinine Clearance 50 mL/min (70-130); Calcium 8.5 mg/dL (7.8-10.44); Carbon Dioxide 22 mmol/L (22-29); Chloride 105 mmol/L (98-107); Estimated GFR 42; Glucose 87 mg/dL (70-105); Potassium 4.8 mmol/L (3.5-5.1); Sodium 140 mmol/L (136-145)
[2022-10-15 06:03] LABS: #Monocytes 0.2 10x3/uL (0.0-1.1); #Neutrophils 12.3 10x3/uL (1.5-8.4); %Basophils 0.1 % (0.0-2.0); %Eosinophils 0.1 % (0.0-6.0); %Lymphocytes 5.5 % (18.0-47.0); %Monocytes 1.6 % (0.0-10.0); Hemoglobin 11.8 g/dL (13.5-17.5); Mean Corpuscular Hemoglobin 27.7 pg (27.0-33.0); Mean Corpuscular Volume 86.6 fl (81.2-95.1); Mean Platelet Volume 10.4 fl (7.4-10.4); Platelet Count 221 10x3/uL (150-450); RBC Distribution Width 17.2 % (11.5-14.5); Red Blood Cell (RBC) Count 4.26 10x6/uL (4.32-5.72); White Blood Cell (WBC) Count 13.3 10x3/uL (3.5-10.5)
[2022-10-15] MEDS: Aspirin 325 MG TAB PO SCH (08:47)
[2022-10-15] MEDS: Carvedilol 3.125 MG TAB PO SCH ×3 (08:47→18:49)
[2022-10-15] MEDS ORDERED: Iopamidol 300 61% 100 ML VIAL FS ONE (10:04)
[2022-10-15] MEDS ORDERED: Morphine 2 MG/ML VIAL SLOW IVP SCH (13:15)
[2022-10-15] MEDS: Cefepime 1 GM in Sodium Chloride 0.9% 100 ML IVPB SCH (13:23)
[2022-10-15] MEDS ORDERED: Acetaminophen 500 MG TAB PO PRN (13:24)
[2022-10-15] MEDS ORDERED: Heparin 10,000 UNITS/ 10 ML VIAL SLOW IVP SCH (13:30)
[2022-10-15] MEDS ORDERED: Lactated Ringer's 1,000 ML IV SCH (13:30)
[2022-10-15] MEDS ORDERED: Heparin 25,000 units/D5W 500 ML IVPB SCH (13:30)
[2022-10-15] MEDS: Lactated Ringer's 1,000 ML IV SCH (13:41)
[2022-10-15] MEDS ORDERED: methylPREDNISolone Sod Succ 40 MG VIAL IVP SCH (13:45)
[2022-10-15] MEDS ORDERED: methylPREDNISolone Sod Succ 1 GM in Sodium Chloride 0.9% 100 ML IVPB SCH (14:00)
[2022-10-15 14:24] LABS: Lactic Acid 2.5 mmol/L (0.5-2.2)
[2022-10-15 14:31] LABS: Hemoglobin 11.9 g/dL (13.5-17.5); Platelet Count 200 10x3/uL (150-450)
[2022-10-15] MEDS: VANCOMYCIN 1.25 GM/250 ML BAG 1.25 GM in Premix Bag 1 BAG IVPB SCH ×2 (15:13→15:34)
[2022-10-15] MEDS: oxyCODONE 5 MG TAB PO PRN ×2 (15:27→20:40)
[2022-10-15] MEDS ORDERED: Vancomycin 1 GM in Premix Bag 1 BAG IVPB SCH (21:00)
[2022-10-15] MEDS: metroNIDAZOLE 500 MG in Premix Bag 1 BAG IVPB SCH (22:27)
[2022-10-16] MEDS: Morphine 2 MG/ML VIAL SLOW IVP PRN ×4 (00:48→21:36)
[2022-10-16] MEDS: Cefepime 1 GM in Sodium Chloride 0.9% 100 ML IVPB SCH (00:49)
[2022-10-16] MEDS: Lactated Ringer's 1,000 ML IV SCH (00:49)
[2022-10-16] MEDS: metroNIDAZOLE 500 MG in Premix Bag 1 BAG IVPB SCH (05:26)
[2022-10-16 05:43] LABS: #Basophils 0.1 10x3/uL (0.0-0.2); #Monocytes 0.3 10x3/uL (0.0-1.1); #Neutrophils 13.1 10x3/uL (1.5-8.4); %Basophils 0.6 % (0.0-2.0); %Eosinophils 0.3 % (0.0-6.0); %Lymphocytes 2.6 % (18.0-47.0); %Monocytes 2.1 % (0.0-10.0); %Neutrophils 93.5 % (40.0-75.0); Hemoglobin 11.4 g/dL (13.5-17.5); Mean Corpuscular HGB CONC 32.2 g/dL (32.0-36.0); Mean Corpuscular Hemoglobin 27.5 pg (27.0-33.0); Mean Corpuscular Volume 85.5 fl (81.2-95.1); Mean Platelet Volume 10.4 fl (7.4-10.4); Platelet Count 162 10x3/uL (150-450); RBC Distribution Width 17.1 % (11.5-14.5); Red Blood Cell (RBC) Count 4.14 10x6/uL (4.32-5.72)
[2022-10-16 05:54] LABS: Anion Gap 21 mmol/L (10-20); BUN (Urea Nitrogen) 29 mg/dL (8.4-25.7); Calc. Creatinine Clearance 55 mL/min (70-130); Calcium 8.6 mg/dL (7.8-10.44); Carbon Dioxide 17 mmol/L (22-29); Chloride 104 mmol/L (98-107); Estimated GFR 46; Glucose 108 mg/dL (70-105); Potassium 4.8 mmol/L (3.5-5.1); Sodium 137 mmol/L (136-145)
[2022-10-16] MEDS ORDERED: Bupivacaine PF 0.5% 30 ML VIAL ONE (06:21)
[2022-10-16 06:22] LABS: Platelet Adequacy Comment Appears Adequate; RBC Morph Comment Within Normal Limits
[2022-10-16] MEDS ORDERED: Acetaminophen 500 MG TAB PO PRN (08:57)
[2022-10-16] MEDS ORDERED: methylPREDNISolone Sod Succ 1 GM in Sodium Chloride 0.9% 100 ML IVPB SCH (09:00)
[2022-10-16] MEDS ORDERED: methylPREDNISolone Sod Succ 40 MG VIAL IVP SCH (09:00)
[2022-10-16] MEDS: Tamsulosin HCl 0.4 MG CAP PO SCH (09:00)
[2022-10-16] MEDS: Lisinopril 20 MG TAB PO SCH (09:00)
[2022-10-16] MEDS ORDERED: Acetaminophen 500 MG TAB PO SCH (09:00)
[2022-10-16] MEDS: predniSONE 5 MG TAB PO SCH (09:00)
[2022-10-16] MEDS ORDERED: PROPOFOL 20 ML ONE (09:04)
[2022-10-16] MEDS ORDERED: Lidocaine 2% PF 100 mg/5 ml Syringe ONE (09:04)
[2022-10-16] MEDS ORDERED: Ondansetron PF 4 MG/2 ML Vial ONE (09:04)
[2022-10-16] MEDS ORDERED: Dexamethasone 4 mg/ml Vial ONE (09:04)
[2022-10-16] MEDS ORDERED: Fentanyl 250 MCG/5 ML VIAL ONE (09:04)
[2022-10-16] MEDS ORDERED: Rocuronium Bromide 10 MG/ML (10ML VIAL) ONE (09:04)
[2022-10-16] MEDS ORDERED: Albuterol HFA (OR) 200 PUFF INH ONE (09:38)
[2022-10-16] MEDS ORDERED: EPINEPHrine 1 MG/ML AMP ONE (09:55)
[2022-10-16] MEDS ORDERED: Pregabalin 50 MG CAP PO SCH (10:00)
[2022-10-16] MEDS ORDERED: SUGAMMADEX SODIUM 200 MG/2 ML VIAL ONE (10:21)
[2022-10-16] MEDS ORDERED: fentaNYL 50 mcg/mL 1 mL Vial ONE ×2 (11:02→11:16)
[2022-10-16] MEDS ORDERED: HYDROmorphone 0.5 MG/0.5 ML SYRINGE ONE (11:27)
[2022-10-16] MEDS: LevoFLOXacin 500 mg/D5W 500 MG in Premix Bag 1 BAG IVPB SCH (12:00)
[2022-10-16] MEDS ORDERED: Vancomycin HCl 1 GM in Sodium Chloride 0.9% 250 ML 250 ML IVPB SCH (13:30)
[2022-10-16] MEDS: Sodium Chloride 0.45% 1,000 ML IV SCH ×3 (13:44→21:45)
[2022-10-16] MEDS: Carvedilol 3.125 MG TAB PO SCH ×2 (14:05→18:11)
[2022-10-16] MEDS: Folic Acid 1 MG TAB PO SCH (14:06)
[2022-10-16] MEDS: DULoxetine 30 MG CAP PO SCH (14:06)
[2022-10-16] MEDS: Aspirin 325 MG TAB PO SCH (14:06)
[2022-10-16] MEDS ORDERED: LevoFLOXacin 500 mg/D5W 100 ML BAG ONE (14:10)
[2022-10-16] MEDS: Pregabalin 50 MG CAP PO SCH ×2 (15:00→21:32)
[2022-10-16] MEDS ORDERED: Atorvastatin Calcium 40 MG TAB PO SCH (21:00)
[2022-10-16] MEDS: Famotidine 20 MG TAB PO SCH (21:33)
[2022-10-17 03:36] LABS: Anion Gap 15 mmol/L (10-20); BUN (Urea Nitrogen) 28 mg/dL (8.4-25.7); Calc. Creatinine Clearance 69 mL/min (70-130); Carbon Dioxide 22 mmol/L (22-29); Chloride 107 mmol/L (98-107); Estimated GFR 61; Glucose 129 mg/dL (70-105); Potassium 4.5 mmol/L (3.5-5.1); Sodium 139 mmol/L (136-145)
[2022-10-17 03:47] LABS: Hemoglobin 9.3 g/dL (13.5-17.5); Mean Corpuscular HGB CONC 32.4 g/dL (32.0-36.0); Mean Corpuscular Hemoglobin 27.5 pg (27.0-33.0); Mean Corpuscular Volume 84.9 fl (81.2-95.1); Mean Platelet Volume 10.7 fl (7.4-10.4); Platelet Count 168 10x3/uL (150-450); RBC Distribution Width 17.2 % (11.5-14.5); Red Blood Cell (RBC) Count 3.38 10x6/uL (4.32-5.72)
[2022-10-17 03:50] LABS: MDiff Complete? YES
[2022-10-17] MEDS: Morphine 2 MG/ML VIAL SLOW IVP PRN (04:27)
[2022-10-17 05:16] LABS: Band 4 % (5-11); Lymphocytes 3 % (21-51); Monocytes 4 % (0-10); Neutrophil 89 % (42-75)
[2022-10-17 05:19] LABS: Anisocytosis SLIGHT = 6-15 cells (100X) (0-5/hpf); Hypochromia SLIGHT = 6-15 cells (100X) (0-5/hpf); Macrocytosis SLIGHT = 6-15 cells (100X) (0-5/hpf); Microcytosis SLIGHT = 6-15 cells (100X) (0-5/hpf); Ovalocytes SLIGHT = 2-5 cells (100X) (0-1/hpf)
[2022-10-17 05:20] LABS: Platelet Adequacy Comment Appears Adequate
[2022-10-17] MEDS ORDERED: Ferrous Sulfate 325 MG TAB PO SCH (08:00)
[2022-10-17] MEDS ORDERED: Pantoprazole 40 MG VIAL IVP SCH (09:00)
[2022-10-17] MEDS: traMADol HCl 50 MG TAB PO PRN ×2 (09:10→15:32)
[2022-10-17] MEDS: predniSONE 5 MG TAB PO SCH (09:10)
[2022-10-17] MEDS: Famotidine 20 MG TAB PO SCH (09:10)
[2022-10-17] MEDS: Pregabalin 50 MG CAP PO SCH ×2 (09:11→15:32)
[2022-10-17] MEDS: Tamsulosin HCl 0.4 MG CAP PO SCH (09:11)
[2022-10-17] MEDS: Aspirin 325 MG TAB PO SCH (09:12)
[2022-10-17] MEDS: Folic Acid 1 MG TAB PO SCH (09:12)
[2022-10-17] MEDS: DULoxetine 30 MG CAP PO SCH (09:12)
[2022-10-17] MEDS: Lisinopril 20 MG TAB PO SCH (09:12)
[2022-10-17] MEDS: Carvedilol 3.125 MG TAB PO SCH ×2 (09:13→17:43)
[2022-10-17] MEDS: Sodium Chloride 0.45% 1,000 ML IV SCH ×2 (09:22→12:28)
[2022-10-17] MEDS: LevoFLOXacin 500 mg/D5W 500 MG in Premix Bag 1 BAG IVPB SCH (12:58)
[2022-10-17 18:46] VITALS: BP 98/54; TEMP 97.8
[2022-10-18] MEDS ORDERED: LevoFLOXacin 500 MG TAB PO SCH (06:00)
[2022-10-18] MEDS ORDERED: Polyethylene Glycol 3350 17 GM Packet PO SCH (09:00)
== END 2022-10-17 17:47 | disposition home or self-care (01) | DRG 418 ==
LOC: CSHERS 08:47 → CSHTELE 17:53 → OBSVTOIN 10-15 13:24 → CSHICU 10-16 11:14 → CSHTELE 10-16 17:27
PROVIDERS: ADMIT Family Medicine; ATTEND Family Medicine
PROC: 0FT44ZZ Resection of Gallbladder, Percutaneous Endoscopic Approach (ICD-10-PCS; principal; 2022-10-16)
DX: K80.00 Calculus of gallbladder with acute cholecystitis without obstruction (principal); M31.30 Wegener's granulomatosis without renal involvement; N17.9 Acute kidney failure, unspecified; K82.A1 Gangrene of gallbladder in cholecystitis; E78.5 Hyperlipidemia, unspecified; M06.9 Rheumatoid arthritis, unspecified; G62.9 Polyneuropathy, unspecified; N18.9 Chronic kidney disease, unspecified; I12.9 Hypertensive chronic kidney disease with stage 1 through stage 4 chronic kidney disease, or unspecified chronic kidney disease; E86.0 Dehydration; R91.1 Solitary pulmonary nodule; F17.210 Nicotine dependence, cigarettes, uncomplicated; Z86.711 Personal history of pulmonary embolism; Z86.718 Personal history of other venous thrombosis and embolism; Z79.52 Long term (current) use of systemic steroids; I25.2 Old myocardial infarction; Z79.01 Long term (current) use of anticoagulants; Z86.73 Personal history of transient ischemic attack (TIA), and cerebral infarction without residual deficits; Z82.49 Family history of ischemic heart disease and other diseases of the circulatory system; Z79.899 Other long term (current) drug therapy
CPT/HCPCS: 36415; 71045; 71275; 74174; 74177; 80048; 80053; 80306; 81001; 83605; 83690; 84484; 85025; 85652; 85730; 86140; 87040; 87633; 88304; 93005; 94660; 94760; 96372; 96374; 96375; 96376; C1889; C9113; G0378; J0171; J0692; J1100; J1170; J1650; J1885; J1956; J2001; J2270; J2272; J2405; J2704; J2930; J3010; J3370; J3490; J7120; J7512; Q9967; S0020

== ENCOUNTER 2023-04-03 18:33 | Inpatient (IN) | payer OTHER ==
[~2023-04-03 18:33] MED LIST changes: -Iopamidol 300 61% 100 ML VIAL FS ONE; +Iopamidol 370 76% 100 ML VIAL ONE
[2023-04-03 19:28] LABS: #Basophils 0.1 10x3/uL (0.0-0.2); #Eosinphils 0.3 10x3/uL (0.0-0.5); #Monocytes 1.1 10x3/uL (0.0-1.1); #Neutrophils 5.5 10x3/uL (1.5-8.4); %Basophils 0.7 % (0.0-2.0); %Eosinophils 3.4 % (0.0-6.0); %Lymphocytes 25.6 % (18.0-47.0); %Monocytes 11.4 % (0.0-10.0); %Neutrophils 58.4 % (40.0-75.0); Hematocrit 40.7 % (38.8-50.0); Hemoglobin 13.9 g/dL (13.5-17.5); Mean Corpuscular HGB CONC 34.2 g/dL (32.0-36.0); Mean Corpuscular Hemoglobin 28.3 pg (27.0-33.0); Mean Corpuscular Volume 82.7 fl (81.2-95.1); Mean Platelet Volume 10.7 fl (7.4-10.4); Platelet Count 270 10x3/uL (150-450); RBC Distribution Width 13.2 % (11.5-14.5); Red Blood Cell (RBC) Count 4.92 10x6/uL (4.32-5.72); White Blood Cell (WBC) Count 9.5 10x3/uL (3.5-10.5)
[2023-04-03 19:43] LABS: ALT (SGPT) 23 U/L (8-55); AST (SGOT) 14 U/L (5-34); Albumin 3.7 g/dL (3.5-5.0); Alkaline Phosphatase 75 U/L (40-110); Anion Gap 14 mmol/L (10-20); BUN (Urea Nitrogen) 9 mg/dL (8.4-25.7); Bilirubin, Total 0.2 mg/dL (0.2-1.2); Calc. Creatinine Clearance 0 mL/min (70-130); Calcium 8.9 mg/dL (7.8-10.44); Carbon Dioxide 22 mmol/L (22-29); Chloride 108 mmol/L (98-107); Estimated GFR 61; Globulin 2.3 g/dL (2.4-3.5); Glucose 133 mg/dL (70-105); Lipase 47 U/L (8-78); Magnesium 1.8 mg/dL (1.6-2.6); Potassium 3.7 mmol/L (3.5-5.1); Sodium 140 mmol/L (136-145)
[2023-04-03] MEDS ORDERED: Ondansetron PF 4 MG/2 ML Vial ONE (20:44)
[2023-04-03] MEDS ORDERED: Morphine 4 MG/ML VIAL ONE (20:44)
[2023-04-03] MEDS ORDERED: Enoxaparin 80 MG (0.8 mL) SYRINGE ONE (21:28)
[2023-04-03] MEDS ORDERED: Guaifenesin DM 100-10/5 ML UDCUP PO PRN (21:53)
[2023-04-03] MEDS ORDERED: Ondansetron PF 4 MG/2 ML Vial IVP PRN (21:53)
[2023-04-03] MEDS ORDERED: Calcium Carbonate 500 MG ChewTAB PO PRN (21:53)
[2023-04-03] MEDS ORDERED: Senokot S 8.6-50 MG TAB PO PRN (21:53)
[2023-04-03] MEDS ORDERED: Hydrocortisone Sod Succ/PF 100 mg/2 ml Vial IVP SCH (22:00)
[2023-04-03] MEDS ORDERED: Methotrexate Sodium 2.5 MG TAB PO SCH (22:00)
[2023-04-03] MEDS ORDERED: Lactated Ringer's 500 ML IV SCH (22:15)
[2023-04-03] MEDS: Acetaminophen 325 MG TAB PO PRN (23:12)
[2023-04-03 23:27] VITALS: BMI 25.0
[2023-04-04 03:55] LABS: #Basophils 0.1 10x3/uL (0.0-0.2); #Eosinphils 0.1 10x3/uL (0.0-0.5); #Monocytes 0.3 10x3/uL (0.0-1.1); #Neutrophils 6.9 10x3/uL (1.5-8.4); %Basophils 0.9 % (0.0-2.0); %Eosinophils 0.7 % (0.0-6.0); %Lymphocytes 16.4 % (18.0-47.0); %Monocytes 3.4 % (0.0-10.0); %Neutrophils 78.1 % (40.0-75.0); Hematocrit 41.2 % (38.8-50.0); Hemoglobin 13.9 g/dL (13.5-17.5); Mean Corpuscular HGB CONC 33.7 g/dL (32.0-36.0); Mean Corpuscular Hemoglobin 28.4 pg (27.0-33.0); Mean Corpuscular Volume 84.1 fl (81.2-95.1); Mean Platelet Volume 10.6 fl (7.4-10.4); Platelet Count 272 10x3/uL (150-450); RBC Distribution Width 13.1 % (11.5-14.5); White Blood Cell (WBC) Count 8.9 10x3/uL (3.5-10.5)
[2023-04-04 04:04] LABS: Bilirubin Neg (Negative); Blood, Urine Negative (Negative); Glucose, Urine (Dipstick) Normal (Negative); Ketone, Urine 15 mg/dL (Negative); Leukocyte Negative (Negative); Nitrite Negative (Negative); Protein, Urine (Dipstick) 100 mg/dl (Neg-Trace); Specific Gravity, Urine 1.015 (1.005-1.030); Urobilinogen Normal mg/dL (Less than 2)
[2023-04-04 04:05] LABS: Anion Gap 14 mmol/L (10-20); BUN (Urea Nitrogen) 9 mg/dL (8.4-25.7); CRP (Inflammatory) 2.35 mg/dL (= or < 0.5); Calc. Creatinine Clearance 73 mL/min (70-130); Calcium 8.9 mg/dL (7.8-10.44); Carbon Dioxide 21 mmol/L (22-29); Chloride 107 mmol/L (98-107); Estimated GFR 63; Glucose 144 mg/dL (70-105); Magnesium 1.8 mg/dL (1.6-2.6); Sodium 138 mmol/L (136-145)
[2023-04-04 04:11] LABS: Troponin I Less than 0.010 ng/mL (< 0.028)
[2023-04-04 04:24] LABS: Cocaine Metabolite Screen Not Detected (NotDetected); Methamphetamine Detected (NotDetected); Phencyclidine (PCP) Not Detected (NotDetected); THC/Cannabinoid Screen Not Detected (NotDetected)
[2023-04-04 04:25] LABS: Amphetamine Detected (NotDetected); Barbiturates Screen Not Detected (NotDetected); Benzodiazepine Screen Not Detected (NotDetected); Methadone Not Detected (NotDetected); Opiate Screen Detected (NotDetected); Oxycodone Screen Not Detected (NotDetected); Tricyclic Screen Not Detected (NotDetected)
[2023-04-04 04:30] LABS: Clarity Clear (Clear); RBC/HPF None Seen HPF (0-3)
[2023-04-04 04:31] LABS: Bacteria/HPF None Seen HPF (None Seen); Squamous Epithelial None Seen HPF (0-3); WBC/HPF None Seen HPF (0-3)
[2023-04-04] MEDS: Acetaminophen 325 MG TAB PO PRN ×2 (05:41→17:07)
[2023-04-04] MEDS: Pregabalin 25 MG CAP PO SCH ×2 (09:20→21:57)
[2023-04-04] MEDS: predniSONE 20 MG TAB PO SCH (09:21)
[2023-04-04] MEDS: DULoxetine 30 MG CAP PO SCH (09:21)
[2023-04-04] MEDS: Lisinopril 20 MG TAB PO SCH (09:22)
[2023-04-04] MEDS: Tamsulosin HCl 0.4 MG CAP PO SCH (09:22)
[2023-04-04] MEDS: Folic Acid 1 MG TAB PO SCH (09:22)
[2023-04-04] MEDS: Ferrous Sulfate 325 MG TAB PO SCH (09:23)
[2023-04-04] MEDS: Apixaban 5 MG TAB PO SCH ×2 (09:23→21:58)
[2023-04-04] MEDS: Aspirin 81 mg Enteric Coated Tablet PO SCH (09:23)
[2023-04-04] MEDS: Atorvastatin Calcium 40 MG TAB PO SCH (21:58)
[2023-04-04] MEDS: Zolpidem Tartrate 5 MG TAB PO PRN (21:58)
[2023-04-05] MEDS: Folic Acid 1 MG TAB PO SCH (09:45)
[2023-04-05] MEDS: predniSONE 20 MG TAB PO SCH (09:45)
[2023-04-05] MEDS: Pregabalin 25 MG CAP PO SCH ×2 (09:45→20:53)
[2023-04-05] MEDS: Aspirin 81 mg Enteric Coated Tablet PO SCH (09:46)
[2023-04-05] MEDS: Tamsulosin HCl 0.4 MG CAP PO SCH (09:46)
[2023-04-05] MEDS: Lisinopril 20 MG TAB PO SCH (09:46)
[2023-04-05] MEDS: Ferrous Sulfate 325 MG TAB PO SCH (09:46)
[2023-04-05] MEDS: DULoxetine 30 MG CAP PO SCH (09:47)
[2023-04-05] MEDS: Apixaban 5 MG TAB PO SCH ×2 (09:47→20:52)
[2023-04-05] MEDS: Acetaminophen 325 MG TAB PO PRN ×2 (13:20→17:26)
[2023-04-05] MEDS: Atorvastatin Calcium 40 MG TAB PO SCH (20:52)
[2023-04-05] MEDS: Zolpidem Tartrate 5 MG TAB PO PRN (20:56)
[2023-04-06 04:01] LABS: #Monocytes 0.5 10x3/uL (0.0-1.1); #Neutrophils 7.1 10x3/uL (1.5-8.4); %Basophils 0.3 % (0.0-2.0); %Eosinophils 0.1 % (0.0-6.0); %Lymphocytes 23.1 % (18.0-47.0); Hematocrit 38.7 % (38.8-50.0); Mean Corpuscular HGB CONC 33.6 g/dL (32.0-36.0); Mean Corpuscular Hemoglobin 27.9 pg (27.0-33.0); Mean Platelet Volume 10.6 fl (7.4-10.4); Platelet Count 281 10x3/uL (150-450); RBC Distribution Width 12.9 % (11.5-14.5); Red Blood Cell (RBC) Count 4.66 10x6/uL (4.32-5.72); White Blood Cell (WBC) Count 9.9 10x3/uL (3.5-10.5)
[2023-04-06 04:10] LABS: Anion Gap 12 mmol/L (10-20); BUN (Urea Nitrogen) 14 mg/dL (8.4-25.7); Calc. Creatinine Clearance 98 mL/min (70-130); Calcium 8.4 mg/dL (7.8-10.44); Carbon Dioxide 24 mmol/L (22-29); Chloride 106 mmol/L (98-107); Estimated GFR 89; Glucose 86 mg/dL (70-105); Potassium 3.6 mmol/L (3.5-5.1); Sodium 138 mmol/L (136-145)
[2023-04-06] MEDS: Lisinopril 20 MG TAB PO SCH (08:16)
[2023-04-06] MEDS: Ferrous Sulfate 325 MG TAB PO SCH (08:16)
[2023-04-06] MEDS: DULoxetine 30 MG CAP PO SCH (08:16)
[2023-04-06] MEDS: Tamsulosin HCl 0.4 MG CAP PO SCH (08:16)
[2023-04-06] MEDS: Pregabalin 25 MG CAP PO SCH ×2 (08:16→21:05)
[2023-04-06] MEDS: Aspirin 81 mg Enteric Coated Tablet PO SCH (08:17)
[2023-04-06] MEDS: predniSONE 20 MG TAB PO SCH (08:17)
[2023-04-06] MEDS: Apixaban 5 MG TAB PO SCH ×2 (08:17→21:05)
[2023-04-06] MEDS: Folic Acid 1 MG TAB PO SCH (08:17)
[2023-04-06] MEDS: Atorvastatin Calcium 40 MG TAB PO SCH (21:05)
[2023-04-06] MEDS: Zolpidem Tartrate 5 MG TAB PO PRN (21:05)
[2023-04-06] MEDS: Acetaminophen 325 MG TAB PO PRN (21:09)
[2023-04-07 03:46] LABS: #Basophils 0.1 10x3/uL (0.0-0.2); #Eosinphils 0.1 10x3/uL (0.0-0.5); #Monocytes 0.5 10x3/uL (0.0-1.1); #Neutrophils 5.8 10x3/uL (1.5-8.4); %Basophils 0.7 % (0.0-2.0); %Eosinophils 0.8 % (0.0-6.0); %Lymphocytes 33.4 % (18.0-47.0); %Monocytes 4.8 % (0.0-10.0); %Neutrophils 59.8 % (40.0-75.0); Hematocrit 37.8 % (38.8-50.0); Hemoglobin 12.9 g/dL (13.5-17.5); Mean Corpuscular HGB CONC 34.1 g/dL (32.0-36.0); Mean Corpuscular Hemoglobin 28.4 pg (27.0-33.0); Mean Corpuscular Volume 83.3 fl (81.2-95.1); Mean Platelet Volume 10.9 fl (7.4-10.4); Platelet Count 266 10x3/uL (150-450); RBC Distribution Width 12.6 % (11.5-14.5); Red Blood Cell (RBC) Count 4.54 10x6/uL (4.32-5.72); White Blood Cell (WBC) Count 9.6 10x3/uL (3.5-10.5)
[2023-04-07 04:00] LABS: Anion Gap 13 mmol/L (10-20); BUN (Urea Nitrogen) 17 mg/dL (8.4-25.7); Calc. Creatinine Clearance 85 mL/min (70-130); Calcium 8.2 mg/dL (7.8-10.44); Carbon Dioxide 22 mmol/L (22-29); Chloride 106 mmol/L (98-107); Estimated GFR 75; Glucose 83 mg/dL (70-105); Potassium 3.3 mmol/L (3.5-5.1); Sodium 138 mmol/L (136-145)
[2023-04-07 08:58] VITALS: TEMP 98.2
[2023-04-07] MEDS: Folic Acid 1 MG TAB PO SCH (09:15)
[2023-04-07] MEDS: Apixaban 5 MG TAB PO SCH (09:15)
[2023-04-07] MEDS: Lisinopril 20 MG TAB PO SCH (09:16)
[2023-04-07] MEDS: Tamsulosin HCl 0.4 MG CAP PO SCH (09:16)
[2023-04-07] MEDS: Pregabalin 25 MG CAP PO SCH (09:16)
[2023-04-07] MEDS: predniSONE 20 MG TAB PO SCH (09:16)
[2023-04-07] MEDS: DULoxetine 30 MG CAP PO SCH (09:17)
[2023-04-07] MEDS: Ferrous Sulfate 325 MG TAB PO SCH (09:17)
[2023-04-07] MEDS: Aspirin 81 mg Enteric Coated Tablet PO SCH (09:17)
[2023-04-07] MEDS ORDERED: Potassium Chloride 20 MEQ TAB PO SCH (10:00)
[2023-04-07 14:23] VITALS: BP 143/95
== END 2023-04-07 17:05 | disposition home or self-care (01) | DRG 299 ==
LOC: CSHERS 18:33 → CSHTELE 21:46 → OBSVTOIN 21:46
PROVIDERS: ADMIT Student in an Organized Health Care Education/Training Program; ATTEND Nurse Practitioner Acute Care
DX: I82.432 Acute embolism and thrombosis of left popliteal vein (principal); I26.99 Other pulmonary embolism without acute cor pulmonale; M31.30 Wegener's granulomatosis without renal involvement; I69.354 Hemiplegia and hemiparesis following cerebral infarction affecting left non-dominant side; I10 Essential (primary) hypertension; E78.5 Hyperlipidemia, unspecified; F41.9 Anxiety disorder, unspecified; F32.A Depression, unspecified; N18.9 Chronic kidney disease, unspecified; G62.9 Polyneuropathy, unspecified; F17.210 Nicotine dependence, cigarettes, uncomplicated; G89.29 Other chronic pain; I12.9 Hypertensive chronic kidney disease with stage 1 through stage 4 chronic kidney disease, or unspecified chronic kidney disease; N40.0 Benign prostatic hyperplasia without lower urinary tract symptoms; F15.10 Other stimulant abuse, uncomplicated; Z86.711 Personal history of pulmonary embolism; Z90.49 Acquired absence of other specified parts of digestive tract; Z98.890 Other specified postprocedural states; Z79.01 Long term (current) use of anticoagulants; Z79.899 Other long term (current) drug therapy
CPT/HCPCS: 36415; 36416; 70450; 70551; 71275; 80048; 80053; 80306; 81001; 83690; 83735; 83880; 84443; 84484; 85025; 86140; 93005; 93306; 93880; 96372; 96374; 96375; J1650; J1720; J2270; J2405; J7120; J7512; J8610; Q9967

== ENCOUNTER 2023-09-11 16:19 | Emergency (ER) | payer OTHER ==
[2023-09-11] MEDS ORDERED: Lidocaine 1% (PF) 30 ML VIAL ONE (17:01)
[2023-09-11] MEDS ORDERED: Bacitracin 1 PK ONE (17:33)
== END 2023-09-11 17:46 | disposition home or self-care (01) ==
LOC: CSHERS 16:19
DX: S61.412A Laceration without foreign body of left hand, initial encounter (principal); W26.8XXA Contact with other sharp object(s), not elsewhere classified, initial encounter; Z87.891 Personal history of nicotine dependence
CPT/HCPCS: 12002; 99282; J2001

== ENCOUNTER 2023-12-02 12:02 | Inpatient (IN) | payer OTHER ==
[2023-12-02] MEDS ORDERED: Cefepime 2 GM VIAL ONE (12:19)
[2023-12-02] MEDS ORDERED: Acetaminophen 500 MG TAB ONE (12:31)
[2023-12-02 12:48] LABS: Actual Bicarbonate (HCO3v) 24.7 mEq/L (22-28); Analyzer IN Cardio CS ER; Base Excess 2.3 mEq/L (-2 - +2); Chloride (VBG) 97 mmol/L (98-106); Critical Notified Whom: BEAMY; Hematocrit-VBG 40 % (42.0-52.0); Hemoglobin (Hb) 13.7 g/dL (13.1-17.2); Potassium (VBG) 4.46 mmol/L (3.70-5.30); Puncture Site Other Site; RapidComm Collect By CBN; Sodium 133 mmol/L (133-146); pH (venous) 7.507 (7.32-7.43)
[2023-12-02 12:58] LABS: #Basophils 0.03 10x3/uL (0.0-0.2); #Eosinphils 0.08 10x3/uL (0.0-0.5); #Monocytes 1.73 10x3/uL (0.0-1.1); #Neutrophils 11.67 10x3/uL (1.5-8.4); %Basophils 0.2 % (0.0-2.0); %Eosinophils 0.4 % (0.0-6.0); %Monocytes 8.9 % (0.0-10.0); %Neutrophils 60.4 % (40.0-75.0); Hematocrit 39.7 % (38.8-50.0); Hemoglobin 12.7 g/dL (13.5-17.5); Mean Corpuscular Hemoglobin 26.6 pg (27.0-33.0); Mean Corpuscular Volume 83.1 fL (81.2-95.1); Mean Platelet Volume 9.6 fL (7.4-10.4); Platelet Count 346 10x3/uL (150-450); RBC Distribution Width 15.3 % (11.5-14.5); Red Blood Cell (RBC) Count 4.78 10x6/uL (4.32-5.72); White Blood Cell (WBC) Count 19.3 10x3/uL (3.5-10.5)
[2023-12-02 13:04] LABS: Bilirubin Neg (Negative); Blood, Urine Negative (Negative); Glucose, Urine (Dipstick) Normal (Negative); Ketone, Urine Negative (Negative); Leukocyte Negative (Negative); Nitrite Negative (Negative); Protein, Urine (Dipstick) 30 mg/dl (Neg-Trace); pH, Urine 6.5 (5.0-9.0)
[2023-12-02 13:05] LABS: Clarity Clear (Clear)
[2023-12-02 13:06] LABS: PTT 26.8 sec (22.0-33.0); Prothrombin Time 10.4 sec (9.5-12.1)
[2023-12-02 13:11] LABS: ALT (SGPT) 59 U/L (8-55); AST (SGOT) 19 U/L (5-34); Albumin 2.6 g/dL (3.5-5.0); Alkaline Phosphatase 94 U/L (40-110); Anion Gap 15 mmol/L (10-20); BUN (Urea Nitrogen) 15 mg/dL (8.4-25.7); Bilirubin, Total 0.6 mg/dL (0.2-1.2); Calc. Creatinine Clearance 0 mL/min (70-130); Calcium 8.9 mg/dL (7.8-10.44); Carbon Dioxide 24 mmol/L (22-29); Chloride 98 mmol/L (98-107); Estimated GFR 86; Globulin 3.3 g/dL (2.4-3.5); Glucose 108 mg/dL (70-105); Potassium 4.5 mmol/L (3.5-5.1); Protein, Total 5.9 g/dL (6.0-8.3); Sodium 132 mmol/L (136-145)
[2023-12-02 13:11] LABS: Acetaminophen Less than 10 mcg/mL (Less than 10); Alcohol Less than 10.0 mg/dL (Less than 10); Salicylate Less than 8.0 mg/dL (Less than 8.0)
[2023-12-02 13:12] LABS: Amphetamine Not Detected (NotDetected); Barbiturates Screen Not Detected (NotDetected); Benzodiazepine Screen Not Detected (NotDetected); Cocaine Metabolite Screen Not Detected (NotDetected); Methadone Not Detected (NotDetected); Methamphetamine Not Detected (NotDetected); Opiate Screen Not Detected (NotDetected); Oxycodone Screen Not Detected (NotDetected); Phencyclidine (PCP) Not Detected (NotDetected); THC/Cannabinoid Screen Not Detected (NotDetected); Tricyclic Screen Not Detected (NotDetected)
[2023-12-02 13:14] LABS: Troponin I 0.012 ng/mL (< 0.028)
[2023-12-02 13:18] LABS: SARS-CoV-2 E Target Negative; SARS-CoV-2 N2 Target Negative; SARS-CoV-2 NAA Rapid Test Not Detected (NotDetected); SARS-CoV-2 RdRP gene Negative
[2023-12-02 13:38] LABS: Bacteria/HPF None Seen HPF (None Seen); CAUTI Indications for Culture Pelvic or flank pain; RBC/HPF 0-3 HPF (0-3); Squamous Epithelial 0-3 HPF (0-3); WBC/HPF None Seen HPF (0-3)
[2023-12-02 13:39] LABS: Urine Culture Reflex No No
[2023-12-02] MEDS ORDERED: Morphine 4 MG/ML VIAL ONE (14:38)
[2023-12-02] MEDS ORDERED: Ondansetron PF 4 MG/2 ML Vial ONE (14:38)
[2023-12-02] MEDS ORDERED: Ondansetron PF 4 MG/2 ML Vial IVP PRN (15:11)
[2023-12-02 16:10] LABS: Troponin I 0.011 ng/mL (< 0.028)
[2023-12-02 16:32] VITALS: BMI 25.5
[2023-12-02] MEDS: LevoFLOXacin 750 mg/D5W 750 MG in Premix 1 BAG IVPB SCH (17:25)
[2023-12-02] MEDS: Acetaminophen 325 MG TAB PO SCH (17:35)
[2023-12-02] MEDS: Vancomycin 1.5 GRAM/300 ML BAG 1.5 GM in Premix 1 BAG IVPB SCH (17:41)
[2023-12-02 19:40] LABS: Troponin I Less than 0.010 ng/mL (< 0.028)
[2023-12-02] MEDS: traMADol HCl 50 MG TAB PO PRN (21:19)
[2023-12-02] MEDS: methylPREDNISolone Sod Succ 40 MG VIAL IVP SCH (21:19)
[2023-12-03 04:51] LABS: MDiff Complete? YES; Platelet Adequacy Comment Appears Adequate
[2023-12-03 05:02] LABS: Anion Gap 15 mmol/L (10-20); BUN (Urea Nitrogen) 16 mg/dL (8.4-25.7); Calc. Creatinine Clearance 110 mL/min (70-130); Calcium 8.7 mg/dL (7.8-10.44); Carbon Dioxide 23 mmol/L (22-29); Chloride 101 mmol/L (98-107); Estimated GFR 100; Glucose 194 mg/dL (70-105); Potassium 4.5 mmol/L (3.5-5.1); Sodium 134 mmol/L (136-145)
[2023-12-03 05:03] LABS: Hematocrit 34.2 % (38.8-50.0); Hemoglobin 11.2 g/dL (13.5-17.5); Mean Corpuscular HGB CONC 32.7 g/dL (32.0-36.0); Mean Corpuscular Hemoglobin 27.3 pg (27.0-33.0); Mean Corpuscular Volume 83.4 fL (81.2-95.1); Mean Platelet Volume 9.8 fL (7.4-10.4); Platelet Count 281 10x3/uL (150-450); RBC Distribution Width 15.5 % (11.5-14.5); White Blood Cell (WBC) Count 15.9 10x3/uL (3.5-10.5)
[2023-12-03 06:21] LABS: Band 7 % (5-11); Monocytes 3 % (0-10); Reactive Lymphocytes 1 % (0-10)
[2023-12-03 06:22] LABS: Lymphocytes 14 % (21-51); Neutrophil 75 % (42-75)
[2023-12-03 06:23] LABS: RBC Morph Comment Within Normal Limits
[2023-12-03] MEDS: Enoxaparin 40 MG (0.4 mL) SYRINGE SC SCH (09:17)
[2023-12-03] MEDS: HYDROcodone/Acetaminophen 5/325 mg Tablet PO SCH (11:15)
[2023-12-03] MEDS: Pregabalin 75 MG CAP PO SCH ×2 (15:03→21:25)
[2023-12-03] MEDS: DULoxetine 30 MG CAP PO SCH (15:04)
[2023-12-03] MEDS: Apixaban 5 MG TAB PO SCH (21:26)
[2023-12-04] MEDS: HYDROcodone/Acetaminophen 5/325 mg Tablet PO PRN (05:07)
[2023-12-04] MEDS: Morphine 2 MG/ML VIAL SLOW IVP PRN (07:39)
[2023-12-04] MEDS: Aspirin 81 mg Enteric Coated Tablet PO SCH (08:53)
[2023-12-04] MEDS: Atorvastatin Calcium 40 MG TAB PO SCH (08:53)
[2023-12-04] MEDS: DULoxetine 30 MG CAP PO SCH (08:54)
[2023-12-04] MEDS: Pantoprazole DR 40 MG TAB PO SCH (08:55)
[2023-12-04] MEDS: Lisinopril 20 MG TAB PO SCH (08:55)
[2023-12-04] MEDS: Folic Acid 1 MG TAB PO SCH (08:56)
[2023-12-04] MEDS: Ferrous Sulfate 325 MG TAB PO SCH (08:56)
[2023-12-04] MEDS: Tamsulosin HCl 0.4 MG CAP PO SCH (08:57)
[2023-12-04] MEDS ORDERED: Ipratropium/Albuterol 3 ML NEB NEB PRN (10:03)
[2023-12-04] MEDS: Ipratropium/Albuterol 3 ML NEB NEB SCH (13:23)
[2023-12-04] MEDS: Melatonin 3 MG TAB PO SCH (21:00)
[2023-12-05 04:09] LABS: #Basophils 0.02 10x3/uL (0.0-0.2); #Monocytes 0.24 10x3/uL (0.0-1.1); #Neutrophils 11.26 10x3/uL (1.5-8.4); %Basophils 0.1 % (0.0-2.0); %Monocytes 1.8 % (0.0-10.0); %Neutrophils 83.4 % (40.0-75.0); Hematocrit 35.6 % (38.8-50.0); Hemoglobin 11.5 g/dL (13.5-17.5); Mean Corpuscular HGB CONC 32.3 g/dL (32.0-36.0); Mean Corpuscular Hemoglobin 27.2 pg (27.0-33.0); Mean Corpuscular Volume 84.2 fL (81.2-95.1); Mean Platelet Volume 9.7 fL (7.4-10.4); Platelet Count 321 10x3/uL (150-450); RBC Distribution Width 15.2 % (11.5-14.5); Red Blood Cell (RBC) Count 4.23 10x6/uL (4.32-5.72); White Blood Cell (WBC) Count 13.5 10x3/uL (3.5-10.5)
[2023-12-05 04:16] LABS: Anion Gap 13 mmol/L (10-20); BUN (Urea Nitrogen) 28 mg/dL (8.4-25.7); Calc. Creatinine Clearance 90 mL/min (70-130); Calcium 8.6 mg/dL (7.8-10.44); Carbon Dioxide 24 mmol/L (22-29); Chloride 98 mmol/L (98-107); Estimated GFR 83; Glucose 232 mg/dL (70-105); Potassium 4.6 mmol/L (3.5-5.1); Sodium 130 mmol/L (136-145)
[2023-12-05 13:43] LABS: CRP,High Sensitivity (Inhouse) 4.08 mg/dL (< or = 0.5)
[2023-12-05] MEDS: methylPREDNISolone Sod Succ 40 MG VIAL IVP SCH (21:06)
[2023-12-05] MEDS: Temazepam 15 MG CAP PO SCH (21:07)
[2023-12-06 04:15] LABS: #Basophils 0.04 10x3/uL (0.0-0.2); #Eosinphils 0.01 10x3/uL (0.0-0.5); #Monocytes 0.37 10x3/uL (0.0-1.1); #Neutrophils 9.11 10x3/uL (1.5-8.4); %Basophils 0.3 % (0.0-2.0); %Eosinophils 0.1 % (0.0-6.0); %Lymphocytes 18.1 % (18.0-47.0); %Monocytes 3.1 % (0.0-10.0); %Neutrophils 75.4 % (40.0-75.0); Hematocrit 37.3 % (38.8-50.0); Hemoglobin 11.8 g/dL (13.5-17.5); Mean Corpuscular HGB CONC 31.6 g/dL (32.0-36.0); Mean Corpuscular Hemoglobin 26.6 pg (27.0-33.0); Mean Platelet Volume 9.3 fL (7.4-10.4); Platelet Count 292 10x3/uL (150-450); RBC Distribution Width 15.2 % (11.5-14.5); Red Blood Cell (RBC) Count 4.44 10x6/uL (4.32-5.72); White Blood Cell (WBC) Count 12.1 10x3/uL (3.5-10.5)
[2023-12-06 04:32] LABS: Anion Gap 16 mmol/L (10-20); BUN (Urea Nitrogen) 29 mg/dL (8.4-25.7); Calc. Creatinine Clearance 85 mL/min (70-130); Calcium 8.4 mg/dL (7.8-10.44); Carbon Dioxide 22 mmol/L (22-29); Chloride 102 mmol/L (98-107); Estimated GFR 77; Glucose 154 mg/dL (70-105); Potassium 4.9 mmol/L (3.5-5.1); Sodium 135 mmol/L (136-145)
[2023-12-06] MEDS: methylPREDNISolone Sod Succ 40 MG VIAL IVP SCH (21:45)
[2023-12-07 04:00] LABS: Anion Gap 14 mmol/L (10-20); BUN (Urea Nitrogen) 32 mg/dL (8.4-25.7); Calc. Creatinine Clearance 95 mL/min (70-130); Calcium 8.4 mg/dL (7.8-10.44); Carbon Dioxide 23 mmol/L (22-29); Chloride 104 mmol/L (98-107); Estimated GFR 89; Glucose 150 mg/dL (70-105); Potassium 4.9 mmol/L (3.5-5.1); Sodium 136 mmol/L (136-145)
[2023-12-07 04:03] LABS: Hematocrit 37.3 % (38.8-50.0); Hemoglobin 12.1 g/dL (13.5-17.5); MDiff Complete? YES; Mean Corpuscular HGB CONC 32.4 g/dL (32.0-36.0); Mean Corpuscular Hemoglobin 27.3 pg (27.0-33.0); Mean Platelet Volume 9.6 fL (7.4-10.4); Platelet Count 289 10x3/uL (150-450); RBC Distribution Width 15.2 % (11.5-14.5); Red Blood Cell (RBC) Count 4.44 10x6/uL (4.32-5.72); White Blood Cell (WBC) Count 13.2 10x3/uL (3.5-10.5)
[2023-12-07 04:48] LABS: Lymphocytes 20 % (21-51); Metamyelocyte 3 % (0-0); Monocytes 3 % (0-10); Myelocyte 1 % (0-0); Neutrophil 72 % (42-75); Nucleated RBC (Manual Ct) 1 % (0); Reactive Lymphocytes 1 % (0-10)
[2023-12-07 04:56] LABS: Ovalocytes SLIGHT = 2-5 cells (100X) (0-1/hpf); Platelet Adequacy Comment Appears Adequate
[2023-12-07 14:06] LABS: Magnesium 2.2 mg/dL (1.6-2.6); Phosphorus 3.1 mg/dL (2.3-4.7)
[2023-12-07] MEDS: Cyclobenzaprine 10 MG TAB PO PRN (14:25)
[2023-12-08 09:10] VITALS: BP 107/68; TEMP 97.4
[2023-12-08] MEDS: predniSONE 20 MG TAB PO SCH (09:12)
== END 2023-12-08 11:39 | DRG 542 ==
LOC: CSHERS 12:02 → CSHTELE 14:51 → OBSVTOIN 12-04 10:14
PROVIDERS: ADMIT Family Medicine; ATTEND Family Medicine
DX: M31.30 Wegener's granulomatosis without renal involvement (principal); J96.01 Acute respiratory failure with hypoxia; I10 Essential (primary) hypertension; E78.5 Hyperlipidemia, unspecified; F32.A Depression, unspecified; F41.8 Other specified anxiety disorders; G62.9 Polyneuropathy, unspecified; F17.210 Nicotine dependence, cigarettes, uncomplicated; D72.829 Elevated white blood cell count, unspecified; Z79.899 Other long term (current) drug therapy; Z79.82 Long term (current) use of aspirin; Z98.1 Arthrodesis status; Z98.890 Other specified postprocedural states; Z71.6 Tobacco abuse counseling
CPT/HCPCS: 36415; 71045; 71275; 80048; 80053; 80306; 80307; 81001; 82805; 83605; 83735; 83880; 84100; 84484; 85025; 85610; 85730; 86140; 86141; 87040; 93005; 93306; 94640; 94760; 94762; 96365; 96366; 96372; 96375; 96376; G0378; J0692; J1650; J1956; J2272; J2405; J2919; J3370; J7512; J7620; Q9967; U0002